=== PATIENT | female | born 1980 | race Caucasian/White ===

== ENCOUNTER 2023-06-06 08:57 | Outpatient (AMB) | payer BC, SELFPAY ==
--- NOTE | 2023-06-06 09:12 | A.OFFPC_ITS ---
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 Is last menstrual period known: Yes Last menstrual period: 05/28/23 Allergies Penicillins Adverse Reaction (Verified 06/06/23 09:31) Stomach Upset Medication List - Last Reconciled 06/06/23 by DASHA Burroughs No Known Home Meds Tobacco use date assessed: 06/06/23 Dental Screening Dental Screen Date: 06/06/23 Did you have a dental visit in the last 12 months?: Yes Did you have a dental problem in the last 6 months where you did not have access to dental care?: Yes Was dental information given to patient?: Patient has dentist HPI HPI Comments History of Present Illness Details Patient is a 42-year-old female here to establish care. Her most recent Pap smear was completed on 03/29/22 at [facility]. The result was negative for lesion or malignancy. She is up-to-date with her mammogram, the last screening was completed on 04/18/2023. She performs her mammograms at [facility]. Patient declines the influenza vaccine today. She is declining to get the COVID booster vaccine for this year. She has a past medical history significant for anxiety, hypertension, plantar fasciitis. She states that her anxiety is under control. Her blood pressure reading in office today was 144/82, patient would like to take blood pressure readings at home and report her results back in 2 weeks. She also reports that her plantar fasciitis has improved recently with new footwear. She occasionally uses Tylenol or Motrin with good effect. She does not want to pursue physical therapy at this time. She has a chief complaint of occasional henry red blood after a bowel movement. She states that she notices the blood most on the toilet paper. She notices this about once per week. Denies dizziness, chest pain, lethargy, shortness of breath, nausea, vomiting, diarrhea. She often has issues with constipation and has to strain while having a bowel movement. A celebrity chef entrepreneur media personality was present for the physical exam which noted small external hemorrhoid. [facility] Medical History (Updated 06/06/23 @ 15:25 by DASHA Burroughs) Plantar fasciitis Family History Sister Substance use disorder Mental health disorder Skin cancer Maternal Grandfather Substance use disorder Maternal Grandmother Substance use disorder Mother Mental health disorder Pancreatic cancer Coronary arteriosclerosis Social History Housing: House Patient Tobacco Use Status: Former Tobacco user e-Cigarette/Vaping Use: Currently Using Substance Use Type: Painkillers service: No Current occupational status: employed Cognitive needs: No Hearing needs: No Vision needs: Yes Female Reproductive History Menstrual Date of last menstrual period: 05/28/23 Date of Mammogram: 04/23/23 Questionnaire PHQ-9 Over the last 2 weeks, how often have you been bothered by any of the following problems? 1. Little interest or pleasure in doing things: not at all 2. Feeling down, depressed, or hopeless: not at all 3. Trouble falling or staying asleep, or sleeping too much: not at all 4. Feeling tired or having little energy: not at all 5. Poor appetite or overeating: not at all 6. Feeling bad about yourself - or that you are a failure or have let yourself or your family down: not at all 7. Trouble concentrating on things, such as reading the newspaper or watching television: not at all 8. Moving or speaking so slowly that other people could have noticed. Or the opposite - being so fidgety or restless that you have been moving around a lot more than usual: not at all 9. Thoughts that you would be better off or of hurting yourself in some way: not at all Total score: 0 Depression Screening Interpretation: Negative Depression Screening Done: Yes 87318 - PHQ-9 Billing: Yes Source: Developed by Drs. Buddy Moore, Lacey Chu, Aman Vang and colleagues, with an educational angeli from [employer]. Thrive Questionnaire Date Thrive assessed: 06/06/23 I am a: Patient What is your living situation today?: I have a steady place to live Within the past 12 months, did the food you bought not last and you didn't have the money to get more?: Never true Within the past 12 months, did you worry whether your food would run out before you got money to buy more?: Never true Do you have trouble paying for medicines?: No Do you have trouble getting transportation to medical appointments?: No Do you have trouble paying your heating and electricity bill?: No Do you have trouble taking care of your child, family member or friend?: No Do you have trouble with day-to-day activities such as bathing, preparing meals, shopping, managing finances, etc.?: No Are you currently unemployed and looking for a job?: No Are you interested in more education?: No THRIVE Score: 0 AUDIT C Alcohol Use Questionnaire (AUDIT-C) 1. How often do you have a drink containing alcohol?: 4 or more times a week 2. How many drinks containing alcohol do you have on a typical day when you are drinking?: 3 or 4 3. How often do you have six or more drinks on one occasion?: Monthly Total Score: 7 ALICIA-7 AMB Questionnaire ALICIA-7 Date ALICIA - 7 assessed: 06/06/23 Feeling nervous, anxious, or on edge: 0 = Not at all Not being able to stop or control worryin = Not at all Worrying too much about different things: 0 = Not at all Trouble relaxin = Not at all Being so restless that it is hard to sit still: 0 = Not at all Becoming easily annoyed or irritable: 0 = Not at all Feeling afraid as if something awful might happen: 0 = Not at all Total ALICIA-7 score (0-4 normal; 5-9 mild; 10-14 moderate; 15-21 severe): 0 Source: Developed by Drs. Buddy Moore, Lacey Chu, Aman Vang and colleagues, with an educational angeli from [employer]. ALICIA-7 Assessment Billing ALICIA-7 Assessment Tool: ALICIA-7 Assessment 70934 Review of Systems Const Details: Constitutional : No Weight loss, No Fever, No Chills, No Fatigue, No Malaise Eyes: No Eye Pain, No Swelling, No Redness, No vision change Cardiovascular : No Chest Pain, No SOB, No Dyspnea on Exertion, No Orthopnea, No Edema, No Palpitations Respiratory : No Cough, No Sputum, No Wheezing Gastrointestinal : No Nausea, No Vomiting, No Diarrhea, No Constipation, No abdominal Pain, No Hematochezia, No Melena Musculoskeletal : No joint pain, No Myalgias, No Joint Swelling Skin : Admits pink dry patch on shoulder. Neuro : No Weakness, No Numbness, No Dizziness, No Headache Psych : No Anxiety/Panic, No Depression Heme/Lymph: No Bruising, No Bleeding,No Lymphadenopathy Endocrine : No Polyuria, No Polydipsia All other systems reviewed and are negative Physical exam (Primary Care) Vital Signs: Last Vital Signs Pulse 83 06/06/23 09:13 BP 144/82 H 06/06/23 09:13 Pulse Ox 99 06/06/23 09:13 Oxygen Delivery Method Room Air 06/06/23 09:13 Care Plan Goal for BP management: Patient will take blood pressure measurements at home and call the office with results. Next steps: Patient has follow-up BMI result Body Mass Index 35.4 Tobacco/Smoking Status: Tobacco use Status Tobacco use date assessed 06/06/23 06/06/23 09:15 Patient Tobacco Use Status Former Tobacco user 06/06/23 09:39 e-Cigarette/Vaping Use Currently Using 06/06/23 09:39 PHQ-9: PHQ-9 Score PHQ-9: Total score 0 06/06/23 09:43 Depression Screening Interpretation: Negative Thrive Assessment: Date of Thrive Assessment Date Thrive assessed 06/06/23 06/06/23 09:19 Const Other: Appearance: Alert.? Oriented X3.? No acute distress.? Eyes: Pupils equal, round and reactive to light.? Neck: Normal inspection.? Neck supple.?Full ROM. CVS: Normal heart rate and rhythm.? Pulses normal.? Respiratory: No respiratory distress.? Breath sounds normal.? GI: (With Patternmaker Apprentice Metal Present): patient has small external hemorrhoid. Skin: Skin warm and dry.? Normal skin color.? Normal skin turgor.? Extremities: No lower extremity edema.? Tenderness to palpation inferior to heel, where arch begins. Over insertion site of plantar fascia. Neuro: Oriented X 3.? No motor deficit.? No sensory deficit. CN 2-12 intact Assessment and Plan Assessment & Plan (1) Hypertension: Comment: Patient will take blood pressure measurements at home and return the results the office in 2 weeks. Patient states that if blood pressure remains elevated she will be agreeable to going on blood pressure medication. She has been educated on signs of worsening symptoms when to report back to the office or when to present to the ED. Code(s): I10 - Essential (primary) hypertension Qualifiers: Hypertension type: primary hypertension Qualified Code(s): I10 - Essential (primary) hypertension (2) Dry skin: Comment: Patient has small pink patch of dry skin on her shoulder. Patient has not used any cream on the area. Patient has been advised to use hydrocortisone OTC cream. She has been instructed to call the office she does not see improvement in 2 weeks. Code(s): L85.3 - Xerosis cutis Plan: Take your medications as prescribed. If you were prescribed antibiotics today, it is important that you take your medication to their entirety, do not skip any doses, do not finish them early. Follow-up with your primary care provider this week. Return to the emergency department with new or worsening symptoms. Such as fevers, chills, chest pain, shortness of breath, nausea, vomiting, dizziness, headache, vision changes, lethargy In case of emergency call 911 (3) Plantar fasciitis: Comment: Patient will try capsaicin cream. She has also been notified that she can use a splint on her foot over night while she sleeps that will keep the foot stretched. This will help eliminate a.m. pain, which is when she has the most discomfort. Patient has declined Podiatry at this time. Will also obtain x-ray of the area. Code(s): M72.2 - Plantar fascial fibromatosis Plan Patient to follow-up 4 months. Orders: Orders Complete Blood Count Auto Diff Today Z13.0 - Encounter for screening for diseases of the blood and blood-forming organs and certain disorders involving the immune mechanism Lipid Panel Today Z13.220 - Encounter for screening for lipoid disorders Vitamin B12 Today Z13.21 - Encounter for screening for nutritional disorder UA CC w/rflx Micro + Cult Today E86.0 - Dehydration Comprehensive Met. Panel Today I10 - Essential (primary) hypertension Vitamin D 25-OH (D2 and D3) Today Z13.21 - Encounter for screening for nutritional disorder Vitamin B6 Today Z13.21 - Encounter for screening for nutritional disorder TSH reflex Free T4 Today Z13.29 - Encounter for screening for other suspected endocrine disorder Medications: New capsaicin 0.025% (Capsicum) do not leave patch on for more than 8 hrs 1 patch topical BID PRN 10 ea 0RF pain Review Flu Vaccine not done: patient reason Coding Level of Care Code New Pt Level 4 (78860) Diagnoses Primary hypertension I10 Hypertension type: primary hypertension Dry skin L85.3 Plantar fasciitis M72.2 Additional Codes ALICIA-7 Assessment Billing - ALICIA-7 Assessment Tool: ALICIA-7 Assessment [id number] ([id number]) Time Spent (min) 45
[2023-06-06 09:13] VITALS: BP 144/82; PULSE 83; O2SAT 99; BMI 35.4
== END 2023-06-06 11:50 | disposition home or self-care (01) ==
PROVIDERS: PCP Nurse Practitioner Primary Care; Visit Provider Nurse Practitioner Primary Care
DX: I10 Essential (primary) hypertension (principal); L85.3 Xerosis cutis; M72.2 Plantar fascial fibromatosis
CPT/HCPCS: 99204

== ENCOUNTER 2023-06-19 13:27 | Outpatient (AMB) | payer BC, SELFPAY ==
[2023-06-19 13:28] VITALS: BP 132/82; PULSE 94; O2SAT 98; BMI 35.4
--- NOTE | 2023-06-19 13:28 | MHC.PC.OV ---
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: No Accompanied by: Self / Same As Patient Allergies Penicillins Adverse Reaction (Verified 06/19/23 13:42) Stomach Upset Medication List - Last Reconciled 06/19/23 by DASHA Burroughs lisinopril 5 mg PO DAILY Tobacco use date assessed: 06/19/23 Dental Screening Dental Screen Date: 06/19/23 Did you have a dental visit in the last 12 months?: Yes Did you have a dental problem in the last 6 months where you did not have access to dental care?: No Was dental information given to patient?: Patient has dentist HPI HPI Comments History of Present Illness Details Patient is 42-year-old female here for blood pressure recheck. At last appointment 2 weeks ago patient's blood pressure was elevated in office 144/82. Patient was asked to keep blood pressure log at home and return in 2 weeks with values. Patient's blood pressure log which demonstrates at home values consistent with blood pressure measurement in office. Denies dizziness, headache, nausea, vomiting, diarrhea, chest pain, shortness a breath, numbness. Will start her on 5 mg lisinopril. Patient is getting labs drawn today. Patient has been instructed to keep blood pressure log at home. Report back to the office her results. Patient has annual physical exam in 5 months [facility] Medical History Plantar fasciitis Family History Sister Substance use disorder Mental health disorder Skin cancer Maternal Grandfather Substance use disorder Maternal Grandmother Substance use disorder Mother Mental health disorder Pancreatic cancer Coronary arteriosclerosis Social History Housing: House Patient Tobacco Use Status: Former Tobacco user e-Cigarette/Vaping Use: Currently Using Substance Use Type: Painkillers service: No Current occupational status: employed Cognitive needs: No Hearing needs: No Vision needs: Yes Questionnaire Thrive Questionnaire Date Thrive assessed: 06/06/23 ALICIA-7 AMB Questionnaire ALICIA-7 Date ALICIA - 7 assessed: 06/06/23 Source: Developed by Drs. uBddy Moore, Lacey Chu, Aman Vang and colleagues, with an educational angeli from [employer]. Review of Systems Const Details: Constitutional : No Weight loss, No Fever, No Chills, No Fatigue, No Malaise ENT/Mouth : No sore throat, No Rhinorrhea Eyes: No Eye Pain, No Swelling, No Redness Cardiovascular : No Chest Pain, No SOB, No Dyspnea on Exertion, No Orthopnea, No Edema, No Palpitations Respiratory : No Cough, No Sputum, No Wheezing Gastrointestinal : No Nausea, No Vomiting, No Diarrhea, No Constipation, No abdominal Pain, No Hematochezia, No Melena Genitourinary : No Dysuria, No Urinary Frequency, No Hematuria, Musculoskeletal : No joint pain, No Myalgias, No Joint Swelling Skin : No Skin Lesions, No rash Neuro : No Weakness, No Numbness, No Dizziness, No Headache Psych : No Anxiety/Panic, No Depression Heme/Lymph: No Bruising, No Bleeding,No Lymphadenopathy Endocrine : No Polyuria, No Polydipsia All other systems reviewed and are negative Physical exam (Primary Care) Vital Signs: Last Vital Signs Pulse 94 06/19/23 13:28 BP 132/82 06/19/23 13:28 Pulse Ox 98 06/19/23 13:28 Oxygen Delivery Method Room Air 06/19/23 13:28 BMI result Body Mass Index 35.4 Tobacco/Smoking Status: Tobacco use Status Tobacco use date assessed 06/19/23 06/19/23 13:29 Patient Tobacco Use Status Former Tobacco user 06/19/23 13:29 e-Cigarette/Vaping Use Currently Using 06/19/23 13:29 Thrive Assessment: Date of Thrive Assessment Date Thrive assessed 06/06/23 06/19/23 13:29 HENMT Head: Yes normal to inspection and Yes normocephalic Eyes Pupils: Equal, round and reactive pupils present EOM: EOMs intact bilaterally Direct Ophthalmoscopy: normal light reflex and no photophobia Neck Neck: Yes normal visual inspection, Yes full ROM and Yes no lymphadenopathy Resp Auscultation: clear to auscultation bilaterally Cardio Rate: regular rate Rhythm: regular rhythm Heart sounds: S1 normal heart sound present and S2 normal heart sound present Peripheral pulses: Peripheral pulses 2+ throughout Neuro Cranial nerves: Yes Equal, round and reactive pupils present Assessment and Plan Assessment & Plan (1) Hypertension: Comment: Started on 5 mg Lisinopril. Patient will continue to take blood pressure measurements at home. She has been educated on signs of worsening symptoms and when to report to the office or when to present to the ED. Code(s): I10 - Essential (primary) hypertension Qualifiers: Hypertension type: primary hypertension Qualified Code(s): I10 - Essential (primary) hypertension Plan: Take your medications as prescribed. If you were prescribed antibiotics today, it is important that you take your medication to their entirety, do not skip any doses, do not finish them early. Follow-up with your primary care provider this week. Return to the emergency department with new or worsening symptoms. Such as fevers, chills, chest pain, shortness of breath, nausea, vomiting, dizziness, headache, vision changes, lethargy In case of emergency call 911 Medications: New lisinopril 5 mg PO DAILY 90 tabs 0RF Patient Instructions: Follow-up in 2 weeks with blood pressure measurement results. Coding Level of Care Code Est Pt Level 3 (57722) Diagnoses Primary hypertension I10 Hypertension type: primary hypertension Time Spent (min) 25
== END 2023-06-19 15:11 | disposition home or self-care (01) ==
PROVIDERS: PCP Nurse Practitioner Primary Care; Visit Provider Nurse Practitioner Primary Care
DX: I10 Essential (primary) hypertension (principal)
CPT/HCPCS: 99213

== ENCOUNTER 2023-06-19 13:49 | Outpatient (REF) | payer BC, SELFPAY ==
[2023-06-19 15:59] LABS: MANUAL DIFF FLAG NO
[2023-06-19 16:03] LABS: Appearance Urine Clear; Color Urine Yellow; Glucose Urine UA Negative (Negative); Leukocyte Esterase Urine Negative (Negative); Nitrite Urine Negative (Negative); PH 6.5 (5.0-9.0); Specific Gravity - Urine 1.015 (1.005-1.025); Urine Blood Negative (Negative); Urine Ketones Negative (Negative); Urine Protein Negative (Neg-Trace)
[2023-06-19 16:04] LABS: Basophils Percent Auto 0.4 % (0-2); Eosinophils Absolute Auto 0.2 X10*3/uL (0.0-0.4); Eosinophils Percent Auto 2.7 % (0-4); Hemoglobin 13.2 g/dl (12.0-16.0); Imm Gran Abs Auto 0.03 X10*3/uL (0.00-0.03); Imm Gran Pct Auto 0.3 % (0.0-0.4); Lymphocytes Absolute Auto 2.6 X10*3/uL (1.2-4.9); Lymphocytes Percent Auto 29.6 % (20-40); Mean Corpuscular HGB Conc 34.7 g/dl (31.0-35.0); Mean Corpuscular Hemoglobin 29.9 pg (27.0-33.0); Mean Platelet Volume 10.1 fL (9.4-12.3); Monocytes Absolute Auto 0.5 X10*3/uL (0.1-1.2); Monocytes Percent Auto 5.1 % (2-11); Neutrophils Absolute Auto 5.5 x10*3/uL (2.0-8.3); Neutrophils Percent Auto 61.9 % (45-73); Platelet Count 248 X10*3/uL (160-400); Red Blood Count 4.42 X10*6/uL (4.20-5.50); Red Cell Distribution Width 12.2 % (11.0-16.0); White Blood Count 8.9 X10*3/uL (4.8-10.8)
[2023-06-19 16:26] LABS: Alanine Aminotransferase 24 U/L (0-31); Albumin Level 4.2 g/dL (3.5-5.0); Alkaline Phosphatase 70 U/L (39-117); Anion Gap 12 (12-20); Aspartate Amino Transferase 21 U/L (5-31); Bilirubin Total 0.4 mg/dL (0.0-1.0); Blood Urea Nitrogen 12 mg/dL (9-16); Calcium 9.2 mg/dL (8.4-10.2); Carbon Dioxide 24 mmol/L (22-29); Chloride 106 mmol/L (96-108); Estimated Glomerular Filt Rate > 60; Glucose Random 96 mg/dL (60-115); Potassium 3.9 mmol/L (3.3-5.1); Sodium 138 mmol/L (135-145); Total Protein 7.1 g/dL (6.5-8.0)
[2023-06-19 16:43] LABS: TSH reflex Free T4 1.78 uIU/mL (0.32-4.0)
[2023-06-19 16:45] LABS: Vitamin B12 479 pg/mL (200-900)
[2023-06-23 14:42] LABS: Vitamin D 25-OH, D2 <4 ng/mL; Vitamin D 25-OH, D3 8 ng/mL; Vitamin D 25-OH, Total 8 ng/mL (30-100)
[2023-06-26 06:28] LABS: Vitamin B6 5.3 ng/mL (2.1-21.7)
== END 2023-06-19 13:50 | disposition home or self-care (01) ==
LOC: HO.HMGCLDS 13:49
PROVIDERS: PCP Nurse Practitioner Primary Care; Visit Provider Nurse Practitioner Primary Care
DX: Z13.0 Encounter for screening for diseases of the blood and blood-forming organs and certain disorders involving the immune mechanism (principal); Z13.21 Encounter for screening for nutritional disorder; Z13.29 Encounter for screening for other suspected endocrine disorder; I10 Essential (primary) hypertension; E86.0 Dehydration
CPT/HCPCS: 36415; 80053; 81003; 82306; 82607; 84207; 84443; 85025

== ENCOUNTER 2023-09-16 07:53 | Outpatient (AMB) | payer BC, SELFPAY ==
--- NOTE | 2023-09-16 07:58 | A.OFFPC_ITS ---
Vital Signs 09/16/23 07:59 Height 5 ft 4 in Weight 202 lb BMI 34.7 BP 134/86 Blood Pressure Location Rt brachial Position Sitting Pulse 78 Pulse Source Pulse Oximeter Pulse Oximetry (%) 100 Oxygen Delivery Method Room Air 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: Annual PE/FMLA forms Intake Note: Pt is here today for PE. Allergies Penicillins Adverse Reaction (Verified 09/16/23 08:15) Stomach Upset Medication List - Last Reconciled 09/16/23 by DASHA Burroughs lisinopril 5 mg PO DAILY Tobacco use date assessed: 09/16/23 Dental Screening Dental Screen Date: 06/19/23 HPI HPI Comments History of Present Illness Details Patient is a 43-year-old female in for physical exam. Patient is up-to-date with OBGYN in mammogram. Patient will send us records from certified home health aide. Mammogram completed 5 months prior to this visit Patient is unsure of TD status. Patient has been advised to get status from recent medical provider. Hypertension-controlled. Currently taking 5 mg lisinopril Plantar fasciitis-improved with upgraded footwear. PFSH Medical History Plantar fasciitis Family History Sister Substance use disorder Mental health disorder Skin cancer Maternal Grandfather Substance use disorder Maternal Grandmother Substance use disorder Mother Mental health disorder Pancreatic cancer Coronary arteriosclerosis Social History (Updated 09/16/23 @ 08:36 by DASHA Burroughs) Housing: House Patient Tobacco Use Status: Former Tobacco user e-Cigarette/Vaping Use: Currently Using Substance Use Type: Marijuana and Painkillers service: No Current occupational status: employed Cognitive needs: No Hearing needs: No Vision needs: Yes Questionnaire PHQ-9 Over the last 2 weeks, how often have you been bothered by any of the following problems? 1. Little interest or pleasure in doing things: several days 2. Feeling down, depressed, or hopeless: several days 3. Trouble falling or staying asleep, or sleeping too much: several days 4. Feeling tired or having little energy: several days 5. Poor appetite or overeating: several days 6. Feeling bad about yourself - or that you are a failure or have let yourself or your family down: several days 7. Trouble concentrating on things, such as reading the newspaper or watching television: several days 8. Moving or speaking so slowly that other people could have noticed. Or the opposite - being so fidgety or restless that you have been moving around a lot more than usual: not at all 9. Thoughts that you would be better off or of hurting yourself in some way: not at all Total score: 7 Depression Screening Interpretation: Negative Depression Screening Done: Yes 45693 - PHQ-9 Billing: Yes Source: Developed by Drs. Buddy Moore, Lacey Chu, Aman Vang and colleagues, with an educational angeli from [employer]. Thrive Questionnaire Date Thrive assessed: 06/06/23 AUDIT C Alcohol Use Questionnaire (AUDIT-C) 1. How often do you have a drink containing alcohol?: 4 or more times a week 2. How many drinks containing alcohol do you have on a typical day when you are drinking?: 3 or 4 3. How often do you have six or more drinks on one occasion?: Monthly Total Score: 7 ALICIA-7 AMB Questionnaire ALICIA-7 Date ALICIA - 7 assessed: 06/06/23 Source: Developed by Drs. Buddy Moore, Lacey Chu, Aman asencio nd colleagues, with an educational angeli from [employer]. Review of Systems Const All systems reviewed & are unremarkable except as noted in HPI and below Physical exam (Primary Care) Vital Signs: Last Vital Signs Pulse 78 09/16/23 07:59 BP 134/86 09/16/23 07:59 Pulse Ox 100 09/16/23 07:59 Oxygen Delivery Method Room Air 09/16/23 07:59 Care Plan Goal for BP management: Patient will take blood pressure measurements and record them home Next steps: Will improve diet limit salt intake. BMI result Body Mass Index 34.7 Tobacco/Smoking Status: Tobacco use Status Tobacco use date assessed 09/16/23 09/16/23 08:03 Patient Tobacco Use Status Former Tobacco user 09/16/23 07:58 e-Cigarette/Vaping Use Currently Using 09/16/23 07:58 PHQ-9: PHQ-9 Score PHQ-9: Total score 7 09/16/23 08:41 Depression Screening Interpretation: Negative Thrive Assessment: Date of Thrive Assessment Date Thrive assessed 06/06/23 09/16/23 07:58 Advance Care Planning discussion: Exists, not on file (Patient bring in to scan) Forms completed: Health Care Proxy Time spent: 1-15 minutes, not on file Const Other: Appearance: Alert.? Oriented X3.? No acute distress.? Head: Normocephalic, atraumatic, Eyes: Pupils equal, round and reactive to light.? ENT: Pharynx normal.?TM intact and pearly esteban. Neck: Normal inspection.? Neck supple.?Full ROM. CVS: Normal heart rate and rhythm.? Pulses normal.? Respiratory: No respiratory distress.? Breath sounds normal.? Abdomen: Soft and nontender.? Skin: Skin warm and dry.? Normal skin color.? Normal skin turgor.? Extremities: No lower extremity edema. 5/5 strength to bilateral upper and lower extremities Back: No midline tenderness, no C-spine tenderness, full range of motion, no CVA tenderness bilaterally Neuro: Oriented X 3.? No motor deficit.? No sensory deficit. CN 2-12 intact Results Reviewed Results Reviewed: WBC 8.9 4.8-10.8 X10*3/uL RBC 4.42 4.20-5.50 X10*6/uL HGB 13.2 12.0-16.0 g/dl HCT 38.0 37.0-47.0 % MCV 86.0 80.0-98.0 fL MCH 29.9 27.0-33.0 pg MCHC 34.7 31.0-35.0 g/dl RDW 12.2 11.0-16.0 % PLT 248 160-400 X10*3/uL MPV 10.1 9.4-12.3 fL Neut Pct Auto 61.9 45-73 % ImGran Pct Auto 0.3 0.0-0.4 % Lymp Pct Auto 29.6 20-40 % [place] Pct Auto 5.1 2-11 % Eos Pct Auto 2.7 0-4 % Baso Pct Auto 0.4 0-2 % NRBC Pct Auto 0.0 0.0-0.2 /100WBC ANC Neut Abs # 5.5 2.0-8.3 x10*3/uL ImGran Abs Auto 0.03 0.00-0.03 X10*3/uL Lymph Abs Auto 2.6 1.2-4.9 X10*3/uL [place] Abs Auto 0.5 0.1-1.2 X10*3/uL Eos Abs Auto 0.2 0.0-0.4 X10*3/uL Baso Abs Auto 0.0 0.0-0.2 X10*3/uL NRBC Abs Auto 0.000 0.0-0.012 X10*3/uL Assessment and Plan Assessment & Plan (1) Encounter for physical examination: Comment: Will draw BMP, CBC. Code(s): Z00.00 - Encounter for general adult medical examination without abnormal findings (2) Plantar fasciitis: Comment: Patient utilizing supportive footwear good effect. Code(s): M72.2 - Plantar fascial fibromatosis (3) Hypertension: Comment: Started on 5 mg Lisinopril. Patient will continue to take blood pressure measurements at home. Patient has been educated to limit salt intake. Code(s): I10 - Essential (primary) hypertension Qualifiers: Hypertension type: primary hypertension Qualified Code(s): I10 - Essential (primary) hypertension Plan Follow up in 6 months. Orders: Orders Basic Metabolic Panel 09/16/23 Z91.89 - Other specified personal risk factors, not elsewhere classified Complete Blood Count Auto Diff 09/16/23 Z13.0 - Encounter for screening for diseases of the blood and blood-forming organs and certain disorders involving the immune mechanism Lipase 09/16/23 Z80.0 - Family history of malignant neoplasm of digestive organs Coding Level of Care Code Est Pt Prev Care 40-64y(23203) Diagnoses Encounter for physical examination Z00.00 Plantar fasciitis M72.2 Primary hypertension I10 Hypertension type: primary hypertension Additional Codes Vital Signs *Quality* - Advance Care Planning discussion: Exists, not on file ([id number]) Vital Signs *Quality* - Time spent: 1-15 minutes, not on file ([id number])
[2023-09-16 07:59] VITALS: BP 134/86; PULSE 78; O2SAT 100; BMI 34.7
== END 2023-09-16 09:46 | disposition home or self-care (01) ==
PROVIDERS: Visit Provider Nurse Practitioner Primary Care
DX: Z00.00 Encounter for general adult medical examination without abnormal findings (principal); M72.2 Plantar fascial fibromatosis; I10 Essential (primary) hypertension
CPT/HCPCS: 1123F; 1124F; 99396

== ENCOUNTER 2023-09-16 08:35 | Outpatient (REF) | payer BC, SELFPAY ==
[2023-09-16 10:32] LABS: MANUAL DIFF FLAG NO
[2023-09-16 10:39] LABS: Basophils Percent Auto 0.5 % (0-2); Eosinophils Absolute Auto 0.1 X10*3/uL (0.0-0.4); Eosinophils Percent Auto 1.2 % (0-4); Hemoglobin 13.6 g/dl (12.0-16.0); Imm Gran Abs Auto 0.03 X10*3/uL (0.00-0.03); Imm Gran Pct Auto 0.4 % (0.0-0.4); Lymphocytes Absolute Auto 2.3 X10*3/uL (1.2-4.9); Lymphocytes Percent Auto 28.2 % (20-40); Mean Corpuscular Hemoglobin 30.2 pg (27.0-33.0); Mean Corpuscular Volume 88.9 fL (80.0-98.0); Monocytes Absolute Auto 0.5 X10*3/uL (0.1-1.2); Monocytes Percent Auto 5.7 % (2-11); Neutrophils Absolute Auto 5.3 x10*3/uL (2.0-8.3); Platelet Count 257 X10*3/uL (160-400); Red Cell Distribution Width 12.9 % (11.0-16.0); White Blood Count 8.2 X10*3/uL (4.8-10.8)
[2023-09-16 11:12] LABS: Anion Gap 16 (12-20); Blood Urea Nitrogen 12 mg/dL (9-16); Calcium 9.8 mg/dL (8.4-10.2); Carbon Dioxide 23 mmol/L (22-29); Chloride 106 mmol/L (96-108); Estimated Glomerular Filt Rate > 60; Glucose Random 109 mg/dL (60-115); Lipase 24 U/L (8-78); Potassium 4.1 mmol/L (3.3-5.1); Sodium 141 mmol/L (135-145)
== END 2023-09-16 08:36 | disposition home or self-care (01) ==
LOC: HO.HMGCLDS 08:35
PROVIDERS: PCP Nurse Practitioner Primary Care; Visit Provider Nurse Practitioner Primary Care
DX: Z91.89 Other specified personal risk factors, not elsewhere classified (principal); Z80.0 Family history of malignant neoplasm of digestive organs; Z13.0 Encounter for screening for diseases of the blood and blood-forming organs and certain disorders involving the immune mechanism
CPT/HCPCS: 36415; 80048; 83690; 85025

== ENCOUNTER 2024-01-10 14:05 | Outpatient (AMB) | payer BC, SELFPAY ==
[2024-01-10 14:06] VITALS: BP 122/76; PULSE 101; O2SAT 97; BMI 34.7
--- NOTE | 2024-01-10 14:06 | MHC.PC.OV ---
Vital Signs 01/10/24 14:06 Height 5 ft 4 in Weight 202 lb BMI 34.7 BP 122/76 Blood Pressure Location Rt brachial Position Sitting Pulse 101 H Pulse Source Pulse Oximeter Pulse Oximetry (%) 97 Oxygen Delivery Method Room Air 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: Transfer of care from [facility] Allergies Penicillins Adverse Reaction (Verified 01/10/24 14:07) Stomach Upset Medication List - Last Reconciled 01/10/24 by Taylor Rey MD lisinopril 5 mg PO DAILY Tobacco use date assessed: 01/10/24 Dental Screening Dental Screen Date: 06/19/23 HPI Transfer of care from [facility] HPI Details Patient is a 43-year-old female came in today for establish care visit Patient have hypertension and is currently taking lisinopril 5 mg blood pressure is well-controlled No side effects Patient complaining of pain right foot for that I have ordered x-ray for the management after the report BMI is elevated at 34.7 need to lose weight Patient offer no other complaints She will return in May for physical exam appointment Labs are needed before visit order placed. [facility] Medical History Plantar fasciitis Family History Sister Substance use disorder Mental health disorder Skin cancer Maternal Grandfather Substance use disorder Maternal Grandmother Substance use disorder Mother Mental health disorder Pancreatic cancer Coronary arteriosclerosis Social History Housing: House Patient Tobacco Use Status: Former Tobacco user e-Cigarette/Vaping Use: Currently Using Substance Use Type: Marijuana and Painkillers service: No Current occupational status: employed Cognitive needs: No Hearing needs: No Vision needs: Yes Questionnaire PHQ-9 Over the last 2 weeks, how often have you been bothered by any of the following problems? 1. Little interest or pleasure in doing things: several days 2. Feeling down, depressed, or hopeless: several days 3. Trouble falling or staying asleep, or sleeping too much: several days 4. Feeling tired or having little energy: several days 5. Poor appetite or overeating: not at all 6. Feeling bad about yourself - or that you are a failure or have let yourself or your family down: several days 7. Trouble concentrating on things, such as reading the newspaper or watching television: not at all 8. Moving or speaking so slowly that other people could have noticed. Or the opposite - being so fidgety or restless that you have been moving around a lot more than usual: not at all 9. Thoughts that you would be better off or of hurting yourself in some way: not at all Total score: 5 Depression Screening Interpretation: Negative Depression Screening Done: Yes 07021 - PHQ-9 Billing: Yes Source: Developed by Drs. Buddy Moore, Lacey Chu, Aman Vang and colleagues, with an educational angeli from [employer]. Thrive Questionnaire Date Thrive assessed: 01/10/24 I am a: Patient What is your living situation today?: I have a steady place to live Within the past 12 months, did the food you bought not last and you didn't have the money to get more?: I choose not to answer this question Within the past 12 months, did you worry whether your food would run out before you got money to buy more?: I choose not to answer this question Do you have trouble paying for medicines?: No Do you have trouble getting transportation to medical appointments?: No Do you have trouble paying your heating and electricity bill?: No Do you have trouble taking care of your child, family member or friend?: No Do you have trouble with day-to-day activities such as bathing, preparing meals, shopping, managing finances, etc.?: I choose not to answer this question Are you currently unemployed and looking for a job?: No Are you interested in more education?: I choose not to answer this question Please select the resources that you would like help with: None Currently or been in a relationship where the following occur: I choose not to answer THRIVE Score: 0 AUDIT C Alcohol Use Questionnaire (AUDIT-C) 1. How often do you have a drink containing alcohol?: 2-3 times a week 2. How many drinks containing alcohol do you have on a typical day when you are drinking?: 3 or 4 3. How often do you have six or more drinks on one occasion?: Weekly Total Score: 7 ALICIA-7 AMB Questionnaire ALICIA-7 Date ALICIA - 7 assessed: 01/10/24 Feeling nervous, anxious, or on edge: 1 = Several days Not being able to stop or control worryin = Several days Worrying too much about different things: 1 = Several days Trouble relaxin = Several days Being so restless that it is hard to sit still: 0 = Not at all Becoming easily annoyed or irritable: 1 = Several days Feeling afraid as if something awful might happen: 0 = Not at all Total ALICIA-7 score (0-4 normal; 5-9 mild; 10-14 moderate; 15-21 severe): 5 Source: Developed by Drs. Buddy Moore, Lacey Chu, Aman Vang and colleagues, with an educational angeli from [employer]. Review of Systems Const Denies chills and Denies fever(s) ENT Denies epistaxis and Denies nasal discharge Card Denies chest pain Resp Denies chest congestion, Denies cough and Denies hemoptysis GI Denies diarrhea and Denies nausea Skin/Breast Denies rash Neuro Reports no additional complaints Psych Reports no additional complaints Endo Reports no additional complaints Physical exam (Primary Care) Vital Signs: Last Vital Signs Pulse 101 H 01/10/24 14:06 BP 122/76 01/10/24 14:06 Pulse Ox 97 01/10/24 14:06 Oxygen Delivery Method Room Air 01/10/24 14:06 BMI result Body Mass Index 34.7 Tobacco/Smoking Status: Tobacco use Status Tobacco use date assessed 01/10/24 01/10/24 14:10 Patient Tobacco Use Status Former Tobacco user 01/10/24 14:10 e-Cigarette/Vaping Use Currently Using 01/10/24 14:10 PHQ-9: PHQ-9 Score PHQ-9: Total score 5 01/10/24 14:20 Depression Screening Interpretation: Negative Thrive Assessment: Date of Thrive Assessment Date Thrive assessed 01/10/24 01/10/24 14:10 Currently or been in a relationship where the following occur: I choose not to answer Const General: cooperative, comfortable and no acute distress Orientation/consciousness: patient oriented x3 HENMT Head: Yes normocephalic Eyes General: appearance normal, both eyes and all related structures Neck Neck: Yes supple Resp Effort & Inspection: normal respiratory effort, no cough and no stridor Cardio Rhythm: regular rhythm Heart sounds: S1 normal heart sound present and S2 normal heart sound present Skin General skin exam: turgor normal Neuro General: patient oriented x3, tone normal and moves all extremities Extrem Right lower extremity: no edema Left lower extremity: no edema Assessment and Plan Assessment & Plan (1) Establishing care with new doctor, encounter for: Code(s): Z76.89 - Persons encountering health services in other specified circumstances (2) Hypertension: Comment: Started on 5 mg Lisinopril. Patient will continue to take blood pressure measurements at home. Patient has been educated to limit salt intake. Code(s): I10 - Essential (primary) hypertension Qualifiers: Hypertension type: primary hypertension Qualified Code(s): I10 - Essential (primary) hypertension (3) Foot pain, right: Code(s): M79.671 - Pain in right foot (4) Obesity due to excess calories: Code(s): E66.09 - Other obesity due to excess calories Qualifiers: Obesity classification: adult class 1 (BMI 30 - 34.9) Serious obesity comorbidity presence: with serious comorbidity Body mass index: BMI 34.0-34.9 Qualified Code(s): E66.09 - Other obesity due to excess calories; Z68.34 - Body mass index [BMI] 34.0-34.9, adult Plan Patient is a 43-year-old female came in today for establish care visit Patient have hypertension and is currently taking lisinopril 5 mg blood pressure is well-controlled No side effects Patient complaining of pain right foot for that I have ordered x-ray for the management after the report BMI is elevated at 34.7 need to lose weight Patient offer no other complaints She will return in May for physical exam appointment Labs are needed before visit order placed. Orders: Orders Vitamin D 25-OH (D2 and D3) Today E66.09 - Other obesity due to excess calories, I10 - Essential (primary) hypertension, M79.671 - Pain in right foot, Z76.89 - Persons encountering health services in other specified circumstances Complete Blood Count Auto Diff Today E66.09 - Other obesity due to excess calories, I10 - Essential (primary) hypertension, M79.671 - Pain in right foot, Z76.89 - Persons encountering health services in other specified circumstances Comprehensive [place]. Panel Fast Today E66.09 - Other obesity due to excess calories, I10 - Essential (primary) hypertension, M79.671 - Pain in right foot, Z76.89 - Persons encountering health services in other specified circumstances Lipid Panel Today E66.09 - Other obesity due to excess calories, I10 - Essential (primary) hypertension, M79.671 - Pain in right foot, Z76.89 - Persons encountering health services in other specified circumstances TSH reflex Free T4 Today E66.09 - Other obesity due to excess calories, I10 - Essential (primary) hypertension, M79.671 - Pain in right foot, Z76.89 - Persons encountering health services in other specified circumstances Coding Level of Care Code New Pt Level 3 (17631) Diagnoses Establishing care with new doctor, encounter for Z76.89 Primary hypertension I10 Hypertension type: primary hypertension Foot pain, right M79.671 Class 1 obesity due to excess calories with serious comorbidity and body mass index (BMI) of 34.0 to 34.9 in adult E66.09; Z68.34 Obesity classification: adult class 1 (BMI 30 - 34.9) Serious obesity comorbidity presence: with serious comorbidity Body mass index: BMI 34.0-34.9
== END 2024-01-10 14:24 | disposition home or self-care (01) ==
PROVIDERS: PCP Nurse Practitioner Primary Care; Visit Provider Internal Medicine
DX: Z76.89 Persons encountering health services in other specified circumstances (principal); I10 Essential (primary) hypertension; M79.671 Pain in right foot; E66.09 Other obesity due to excess calories; Z68.34 Body mass index [BMI] 34.0-34.9, adult
CPT/HCPCS: 99203

== ENCOUNTER 2024-01-10 14:30 | Outpatient (REF) | payer BC, SELFPAY ==
--- NOTE | ~2024-01-10 | XR_ITS ---
EXAMINATION: XR FOOT, RIGHT CLINICAL INFORMATION: Pain right foot. COMPARISON: None available. TECHNIQUE: AP, lateral, and oblique views of the right foot. FINDINGS: Small plantar calcaneal spur. Bone mineralization is normal. Joint spaces are preserved. XR/XR foot RT min 3V IMPRESSION: Small plantar calcaneal spur. Electronically signed by: Lindsey Emmanuel MD 01/29/2024 01:55 PM EDT
== END 2024-01-10 14:31 | disposition home or self-care (01) ==
LOC: HO.HMGCX 14:30
PROVIDERS: PCP Internal Medicine; Visit Provider Internal Medicine
DX: M79.671 Pain in right foot (principal)
CPT/HCPCS: 73630

== ENCOUNTER 2024-03-19 08:34 | Outpatient (AMB) | payer BC, SELFPAY ==
--- NOTE | 2024-03-19 09:03 | A.OFFPC_ITS ---
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 Work~ Allergies Penicillins Adverse Reaction (Verified 03/19/24 09:03) Stomach Upset Medication List - Last Reconciled 03/19/24 by Taylor Rey MD lisinopril 5 mg PO DAILY Tobacco use date assessed: 03/19/24 Dental Screening Dental Screen Date: 03/19/24 Did you have a dental visit in the last 12 months?: Yes Did you have a dental problem in the last 6 months where you did not have access to dental care?: No Was dental information given to patient?: Patient has dentist HPI FMLA Work~ HPI Details condition started May of this year right foot heal started to hurt she work in [employer] , [employer] and is on her feet all day on concrete floor 8 hours a day , 5 days a week patient is requesting 4 days a month leave if needed for foot pain 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 [place] i have given her the Phone number to call and book apt [facility] Medical History Plantar fasciitis Family History Sister Substance use disorder Mental health disorder Skin cancer Maternal Grandfather Substance use disorder Maternal Grandmother Substance use disorder Mother Mental health disorder Pancreatic cancer Coronary arteriosclerosis Social History Housing: House Patient Tobacco Use Status: Former Tobacco user e-Cigarette/Vaping Use: Currently Using Substance Use Type: Marijuana and Painkillers service: No Current occupational status: employed Cognitive needs: No Hearing needs: No Vision needs: Yes Questionnaire Thrive Questionnaire Date Thrive assessed: 01/10/24 AUDIT C Alcohol Use Questionnaire (AUDIT-C) 1. How often do you have a drink containing alcohol?: 2-3 times a week 2. How many drinks containing alcohol do you have on a typical day when you are drinking?: 3 or 4 3. How often do you have six or more drinks on one occasion?: Weekly Total Score: 7 Score Reviewed/Action Taken: Yes ALICIA-7 AMB Questionnaire ALICIA-7 Date ALICIA - 7 assessed: 01/10/24 Source: Developed by Drs. Buddy Moore, Lacey B.W. Aman Chu and colleagues, with an educational angeli from [employer]. Review of Systems Const All systems reviewed & are unremarkable except as noted in HPI and below Physical exam (Primary Care) Tobacco/Smoking Status: Tobacco use Status Tobacco use date assessed 03/19/24 03/19/24 09:04 Patient Tobacco Use Status Former Tobacco user 03/19/24 09:04 e-Cigarette/Vaping Use Currently Using 03/19/24 09:04 Thrive Assessment: Date of Thrive Assessment Date Thrive assessed 01/10/24 03/19/24 09:04 Telehealth Telehealth Telehealth Platform: [employer] Location of provider rendering services: practice address Location of patient: address on file Patient Identification confirmed using: Name, : Yes Telehealth method: voice only Patient verbally consented to treatment: Yes Patient verbally consented to billing insurance company: Yes Patient informed of any privacy concerns related to visit: Yes Minutes spent on Phone/Video with Pt.: 13 Coding Level of Care Code Tele Est Pt Level 3 (65940) Diagnoses Heel spur M77.30 Foot pain, right M79.671 Assessment & Plan Assessment & Plan (1) Heel spur: Code(s): M77.30 - Calcaneal spur, unspecified foot Category: Medical (2) Foot pain, right: Code(s): M79.671 - Pain in right foot Category: Medical Plan condition started May of this year right foot heal started to hurt X ray shows Heal spure she work in [employer] , [employer] [place] and is on her feet all day on concrete floor 8 hours a day , 5 days a week patient is requesting 4 days a month leave if needed for foot pain 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
== END 2024-03-19 12:07 | disposition home or self-care (01) ==
LOC: HO.HMCC 08:34
PROVIDERS: PCP Internal Medicine; Visit Provider Internal Medicine
DX: M77.31 Calcaneal spur, right foot (principal); M79.671 Pain in right foot

== ENCOUNTER 2024-04-24 12:20 | Outpatient (AMB) | payer BC, SELFPAY ==
[2024-04-24 12:22] VITALS: BP 128/86; PULSE 105; O2SAT 100; BMI 34.6
--- NOTE | 2024-04-24 12:22 | A.OFFPC_ITS ---
Vital Signs 3 04/24/24 12:22 Height 5 ft 4 in Weight 201 lb 8 oz BMI 34.6 BP 128/86 Blood Pressure Location Rt brachial Position Sitting Pulse 105 H Pulse Source Pulse Oximeter Pulse Oximetry (%) 100 Oxygen Delivery Method Room Air 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: Left ribs pain , trouble pain Allergies Penicillins Adverse Reaction (Verified 04/24/24 12:25) Stomach Upset Medication List - Last Reconciled 04/24/24 by Taylor Rey MD lisinopril 5 mg PO DAILY Tobacco use date assessed: 03/19/24 Dental Screening Dental Screen Date: 03/19/24 HPI Left ribs pain , trouble pain 2 HPI0 Details Chief Complaint The patient complains of pain in the left chest area, worsened by deep breaths or coughing. Assessment and Plan 43-year-old female with history of hyper tension presenting with left-sided chest pain following a coughing incident. The pain began approximately one week ago and coincided with a prior fall three weeks prior, although the patient reports no direct trauma to the chest at the time of the fall. The pain is described as severe and is exacerbated by coughing and deep breathing. Physical examination reveals tenderness and swelling in specific areas on the left chest, suggesting a possible rib fracture. An x-ray has been ordered to confirm the diagnosis. The patient has a known allergy to penicillin, and she prefers to avoid opioid-based pain management. 1. Hypertension Patient's blood pressure medication will be continued. It has been confirmed that the prescribed pain medication will not interact adversely with the antihypertensive treatment. Patient to monitor blood pressure to ensure stability and continue with routine care. 2. Other symptoms and signs involving th e musculoskeletal system R29.898 Patient presents with symptoms consistent with a rib fracture following a coughing episode. Differential diagnosis includes muscular strain versus fracture. A rib x-ray has been ordered to confirm the suspected rib fracture. Management involves pain control and encouragement of deep breathing exercises to prevent pulmonary complications. Prescribed non-opioid analgesics due to the patient's preference to avoid opioids. Diagnostic results - Rib X-ray: Ordered, pending results Problem List - Suspected Rib Fracture - Hypertension - Penicillin Allergy Medications - Antihypertensive medication: For manag ement of hypertension Health Maintenance - Reminded patient to complete fasting b lood test as per prior order Patient Instructions - Take prescribed pain medication with f ood as directed. - Perform deep breathing exercises throu ghout the day to maintain lung function. - Complete fasting blood work as schedul ed. - Avoid lying on the affected side to re duce pain during sleep. - Use Tylenol for pain management and av oid ibuprofen due to interaction with current medication. [facility] Medical History Plantar fasciitis Family History Sister Substance use disorder Mental health disorder Skin cancer Maternal Grandfather Substance use disorder Maternal Grandmother Substance use disorder Mother Mental health disorder Pancreatic cancer Coronary arteriosclerosis Social History Housing: House Patient Tobacco Use Status: Former Tobacco user e-Cigarette/Vaping Use: Currently Using Substance Use Type: Marijuana and Painkillers service: No Current occupational status: employed Cognitive needs: No Hearing needs: No Vision needs: Yes Questionnaire Thrive Questionnaire Date Thrive assessed: 01/10/24 I am a: Patient What is your living situation today?: I have a steady place to live Within the past 12 months, did the food you bought not last and you didn't have the money to get more?: I choose not to answer this question Within the past 12 months, did you worry whether your food would run out before you got money to buy more?: I choose not to answer this question Do you have trouble paying for medicines?: No Do you have trouble getting transportation to medical appointments?: No Do you have trouble paying your heating and electricity bill?: No Do you have trouble taking care of your child, family member or friend?: No Do you have trouble with day-to-day activities such as bathing, preparing meals, shopping, managing finances, etc.?: I choose not to answer this question Are you currently unemployed and looking for a job?: No Are you interested in more education?: I choose not to answer this question Please select the resources that you would like help with: None Currently or been in a relationship where the following occur: I choose not to answer THRIVE Score: 0 ALICIA-7 AMB Questionnaire ALICIA-7 Date ALICIA - 7 assessed: 01/10/24 Source: Developed by Drs. Buddy Moore, Lacey Aman Garcia and colleagues, with an educational angeli from [employer]. Review of Systems Const Denies chills and Denies fever(s) ENT Denies epistaxis and Denies nasal discharge Resp Denies chest congestion, Denies cough and Denies hemoptysis GI Denies diarrhea and Denies nausea Skin/Breast Denies rash Neuro Reports no additional complaints Psych Reports no additional complaints Endo Reports no additional complaints Physical exam (Primary Care) Vital Signs: Last Vital Signs Pulse 105 H 04/24/24 12:22 BP 128/86 04/24/24 12:22 Pulse Ox 100 04/24/24 12:22 Oxygen Delivery Method Room Air 04/24/24 12:22 BMI result Body Mass Index 34.6 Tobacco/Smoking Status: Tobacco use Status Tobacco use date assessed 03/19/24 04/24/24 12:26 Patient Tobacco Use Status Former Tobacco user 04/24/24 12:26 e-Cigarette/Vaping Use Currently Using 04/24/24 12:26 Thrive Assessment: Date of Thrive Assessment Date Thrive assessed 01/10/24 04/24/24 12:26 Currently or been in a relationship where the following occur: I choose not to answer Const General: cooperative Orientation/consciousness: patient oriented x3 HENMT Head: Yes normocephalic Eyes General: appearance normal, both eyes and all related structures Neck Neck: Yes supple Chest Chest/axillae images: 2 1. Point tenderness Resp Effort & Inspection: no cough and no stridor Cardio Rhythm: regular rhythm Heart sounds: S1 normal heart sound present and S2 normal heart sound present GI Other: No epigastric pain Skin General skin exam: turgor normal Neuro General: patient oriented x3, tone normal and moves all extremities Extrem Right lower extremity: no edema Left lower extremity: no edema Coding Level of Care Code Est Pt Level 3 (80226) Diagnoses Rib pain on left side R07.81 Primary hypertension I10 Hypertension type: primary hypertension Assessment & Plan Assessment & Plan (1) Rib pain on left side: Code(s): R07.81 - Pleurodynia Category: Medical (2) Hypertension: Comment: Started on 5 mg Lisinopril. Patient will continue to take blood pressure measurements at home. Patient has been educated to limit salt intake. Code(s): I10 - Essential (primary) hypertension Category: Medical Qualifiers: Hypertension type: primary hypertension Qualified Code(s): I10 - Essential (primary) hypertension Plan Chief Complaint The patient complains of pain in the left chest area, worsened by deep breaths or coughing. Assessment and Plan 43-year-old female with history of hypertension presenting with left-sided chest pain following a coughing incident. The pain began approximately one week ago and coincided with a prior fall three weeks prior, although the patient reports no direct trauma to the chest at the time of the fall. The pain is described as severe and is exacerbated by coughing and deep breathing. Physical examination reveals tenderness and swelling in specific areas on the left chest, suggesting a possible rib fracture. An x-ray has been ordered to confirm the diagnosis. The patient has a known allergy to penicillin, and she prefers to avoid opioid-based pain management. 1. Hypertension Patient's blood pressure medication will be continued. It has been confirmed that the prescribed pain medication will not interact adversely with the antihypertensive treatment. Patient to monitor blood pressure to ensure stability and continue with routine care. 2. Other symptoms and signs involving the musculoskeletal system R29.898 Patient presents with symptoms consistent with a rib fracture following a coughing episode. Differential diagnosis includes muscular strain versus fracture. A rib x-ray has been ordered to confirm the suspected rib fracture. Management involves pain control and encouragement of deep breathing exercises to prevent pulmonary complications. Prescribed non-opioid analgesics due to the patient's preference to avoid opioids. Diagnostic results - Rib X-ray: Ordered, pending results Problem List - Suspected Rib Fracture - Hypertension - Penicillin Allergy Medications - Antihypertensive medication: For management of hypertension Health Maintenance - Reminded patient to complete fasting blood test as per prior order Patient Instructions - Take prescribed pain medication with food as directed. - Perform deep breathing exercises throughout the day to maintain lung function. - Complete fasting blood work as scheduled. - Avoid lying on the affected side to reduce pain during sleep. - Use Tylenol for pain management and avoid ibuprofen due to interaction with current medication. Orders: Orders 2 XR ribs LT min 3V w CXR1V Today R07.81 - Pleurodynia Medications: New 2 diclofenac sodium take it with food 75 mg PO Q12H PRN 60 tabs 0RF pain
== END 2024-04-24 12:46 | disposition home or self-care (01) ==
PROVIDERS: PCP Internal Medicine; Visit Provider Internal Medicine
DX: R07.81 Pleurodynia (principal); I10 Essential (primary) hypertension

== ENCOUNTER 2024-06-09 08:30 | Outpatient (AMB) | payer BC, SELFPAY ==
[2024-06-09 08:34] VITALS: BP 126/84; PULSE 95; O2SAT 99; BMI 34.8
--- NOTE | 2024-06-09 08:34 | A.OFFPC_ITS ---
Vital Signs 06/09/24 08:34 Height 5 ft 4 in Weight 202 lb 8 oz BMI 34.8 BP 126/84 Blood Pressure Location Rt brachial Position Sitting Pulse 95 Pulse Source Pulse Oximeter Pulse Oximetry (%) 99 Oxygen Delivery Method Room Air 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: office visit Allergies Penicillins Adverse Reaction (Verified 06/09/24 08:36) Stomach Upset Medication List - Last Reconciled 06/09/24 by Taylor Rey MD diclofenac sodium 75 mg PO Q12H PRN lisinopril 5 mg PO DAILY Tobacco use date assessed: 06/09/24 Dental Screening Dental Screen Date: 06/09/24 Did you have a dental visit in the last 12 months?: Yes Did you have a dental problem in the last 6 months where you did not have access to dental care?: No Was dental information given to patient?: Patient has dentist HPI office visit HPI Details - The patient is a 43-year-old female pr esenting with management of Essential Hypertension. - Currently on Lisinopril without side e ffects, specifically no cough. - Persistent Vitamin D Deficiency noted in past lab reports. - Inconsistent supplementation despite a vailability at home. - Past musculoskeletal discomfort experi enced during coughing or sneezing, now significantly improved. Problem List - Essential Hypertension - Vitamin D Deficiency Patient Instructions - Continue taking Lisinopril as prescrib ed for blood pressure management. - Begin a consistent regimen of Vitamin D supplementation at home as advised. - Schedule laboratory tests for fasting labs due for blood pressure management and vitamin levels. - Remember fasting requirements before l ab work. - Keep the upcoming appointment in [facility] for a physical examination. Review of Systems - Musculoskeletal: Reports past discomfo rt during coughing or sneezing, much improved. - General: No fever no chills - Neurological: No headaches no dizziness - Ear nose throat: No sore throat no hearing difficulty no ear pain - Cardiovascular: No syncope, no chest pain, no palpitations - Gastrointestinal: No nausea vomiting or diarrhea - Endocrine: No polyuria polydipsia no heat intolerance - Genitourinary: No dysuria , no blood in urine Physical Exam - General: No acute distress - HEENT: No acute findings - Neck: Supple - Respiratory system: Able to talk in f ull sentences, no audible wheeze - cardiovascular: S1-S2 regular in rat e and rhythm - Gastrointestinal: No pain - Extremities: No new findings - M[employer]: Alert awake oriented x3 motor se nsory intact - Skin: Normal turgor PFSH Medical History Plantar fasciitis Family History Sister Substance use disorder Mental health disorder Skin cancer Maternal Grandfather Substance use disorder Maternal Grandmother Substance use disorder Mother Mental health disorder Pancreatic cancer Coronary arteriosclerosis Social History Housing: House Patient Tobacco Use Status: Former Tobacco user e-Cigarette/Vaping Use: Currently Using Substance Use Type: Marijuana and Painkillers service: No Current occupational status: employed Cognitive needs: No Hearing needs: No Vision needs: Yes Questionnaire PHQ-9 Over the last 2 weeks, how often have you been bothered by any of the following problems? 1. Little interest or pleasure in doing things: several days 2. Feeling down, depressed, or hopeless: several days 3. Trouble falling or staying asleep, or sleeping too much: several days 4. Feeling tired or having little energy: several days 5. Poor appetite or overeating: not at all 6. Feeling bad about yourself - or that you are a failure or have let yourself or your family down: not at all 7. Trouble concentrating on things, such as reading the newspaper or watching television: not at all 8. Moving or speaking so slowly that other people could have noticed. Or the opposite - being so fidgety or restless that you have been moving around a lot more than usual: not at all 9. Thoughts that you would be better off or of hurting yourself in some way: not at all Total score: 4 Depression Screening Interpretation: Negative Depression Screening Done: Yes 76850 - PHQ-9 Billing: Yes Source: Developed by Drs. Buddy Moore, Lacey Chu, Aman Vang and colleagues, with an educational angeli from [employer]. Thrive Questionnaire Date Thrive assessed: 06/09/24 I am a: Patient What is your living situation today?: I have a steady place to live Within the past 12 months, did the food you bought not last and you didn't have the money to get more?: Never true Within the past 12 months, did you worry whether your food would run out before you got money to buy more?: Never true Do you have trouble paying for medicines?: No Do you have trouble getting transportation to medical appointments?: No Do you have trouble paying your heating and electricity bill?: I choose not to answer this question Do you have trouble taking care of your child, family member or friend?: No Do you have trouble with day-to-day activities such as bathing, preparing meals, shopping, managing finances, etc.?: No Are you currently unemployed and looking for a job?: No Are you interested in more education?: No Please select the resources that you would like help with: None Currently or been in a relationship where the following occur: No concerns reported THRIVE Score: 0 AUDIT C Alcohol Use Questionnaire (AUDIT-C) 1. How often do you have a drink containing alcohol?: 4 or more times a week 2. How many drinks containing alcohol do you have on a typical day when you are drinking?: 3 or 4 3. How often do you have six or more drinks on one occasion?: Less than monthly Total Score: 6 Score Reviewed/Action Taken: Yes ALICIA-7 AMB Questionnaire ALICIA-7 Date ALICIA - 7 assessed: 06/09/24 Feeling nervous, anxious, or on edge: 1 = Several days Not being able to stop or control worryin = Several days Worrying too much about different things: 1 = Several days Trouble relaxin = Several days Being so restless that it is hard to sit still: 0 = Not at all Becoming easily annoyed or irritable: 1 = Several days Feeling afraid as if something awful might happen: 0 = Not at all Total ALICIA-7 score (0-4 normal; 5-9 mild; 10-14 moderate; 15-21 severe): 5 Source: Developed by Drs. Buddy Mooer, Lacey Chu, Aman Vang and colleagues, with an educational angeli from [employer]. ALICIA-7 Assessment Billing ALICIA-7 Assessment Tool: ALICIA-7 Assessment 26239 Physical exam (Primary Care) Vital Signs: Last Vital Signs Pulse 95 06/09/24 08:34 BP 126/84 06/09/24 08:34 Pulse Ox 99 06/09/24 08:34 Oxygen Delivery Method Room Air 06/09/24 08:34 BMI result Body Mass Index 34.8 Tobacco/Smoking Status: Tobacco use Status Tobacco use date assessed 06/09/24 06/09/24 08:37 Patient Tobacco Use Status Former Tobacco user 06/09/24 08:37 e-Cigarette/Vaping Use Currently Using 06/09/24 08:37 PHQ-9: PHQ-9 Score PHQ-9: Total score 4 06/09/24 08:37 Depression Screening Interpretation: Negative Thrive Assessment: Date of Thrive Assessment Date Thrive assessed 06/09/24 06/09/24 08:37 Currently or been in a relationship where the following occur: No concerns reported Coding Level of Care Code Est Pt Level 3 (35862) Diagnoses Primary hypertension I10 Hypertension type: primary hypertension Class 1 obesity due to excess calories with serious comorbidity and body mass index (BMI) of 34.0 to 34.9 in adult E66.09; Z68.34 Obesity classification: adult class 1 (BMI 30 - 34.9) Serious obesity comorbidity presence: with serious comorbidity Body mass index: BMI 34.0-34.9 Additional Codes ALICIA-7 Assessment Billing - ALICIA-7 Assessment Tool: ALICIA-7 Assessment 90344 ([id number]) PHQ-9 - 60546 - PHQ-9 Billing: Yes ([id number]) Assessment & Plan Assessment & Plan (1) Hypertension: Comment: Started on 5 mg Lisinopril. Patient will continue to take blood pressure measurements at home. Patient has been educated to limit salt intake. Code(s): I10 - Essential (primary) hypertension Category: Medical Qualifiers: Hypertension type: primary hypertension Qualified Code(s): I10 - Essential (primary) hypertension (2) Obesity due to excess calories: Code(s): E66.09 - Other obesity due to excess calories Category: Medical Qualifiers: Obesity classification: adult class 1 (BMI 30 - 34.9) Serious obesity comorbidity presence: with serious comorbidity Body mass index: BMI 34.0-34.9 Qualified Code(s): E66.09 - Other obesity due to excess calories; Z68.34 - Body mass index [BMI] 34.0-34.9, adult Plan - The patient is a 43-year-old female presenting with management of Essential Hypertension. - Currently on Lisinopril without side effects, specifically no cough. - Persistent Vitamin D Deficiency noted in past lab reports. - Inconsistent supplementation despite availability at home. - Past musculoskeletal discomfort experienced during coughing or sneezing, now significantly improved. Problem List - Essential Hypertension - Vitamin D Deficiency - obesity Patient Instructions - Continue taking Lisinopril as prescribed for blood pressure management. - Begin a consistent regimen of Vitamin D supplementation at home as advised. - Schedule laboratory tests for fasting labs due for blood pressure management and vitamin levels. - Remember fasting requirements before lab work. - Keep the upcoming appointment in January for a physical examination. - diet and exercise is recommending to lose weight
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
--- OUTSIDE RECORDS SUMMARY | 2024-06-09 08:50 | XMS_ITS | Patient Health Record ---
Author Organization [employer] [facility] Address [address] [place] [address] Care Team Providers Care Track Maintainer Name Role Phone BREE WELLINGTON Unavailable [phone] Allergies Allergen (clinical drug ingredient) Drug/Non Drug Allergy documented on EMR Reaction Allergy Type Onset Date Status PENICILLIN Nausea/Vomiting/ Diarrhea Drug Allergy Active Results Component Value Reference Range Notes Test, Urine (Not y et reviewed by provider) Interpretation: Performing Lab: Notes/Report: Test, Urine NEG Reason For Referral No Information Medications Medication SIG (Take, Route, Fr equency, [...] points) Points 8 Interpretation Positive Section Notes: Marital status: single, significant other - getting back with ex 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 Nutrition: good diet Exercise: occasional walking Sexual activity: Heterosexual Alcohol: rare alcohol Seatbelt: no 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 Nutrition: good diet Exercise: occasional walking Sexual activity: Heterosexual Alcohol: rare alcohol Seatbelt: no 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 Nutrition: good diet Exercise: occasional walking Sexual activity: Heterosexual Alcohol: rare alcohol Seatbelt: no 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 Nutrition: good diet Exercise: occasional walking Sexual activity: Heterosexual Alcohol: rare alcohol Seatbelt: no 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 Nutrition: good diet Exercise: occasional walking Sexual activity: Heterosexual Alcohol: rare alcohol Seatbelt: no 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 Nutrition: good diet Exercise: occasional walking Sexual activity: Heterosexual Alcohol: rare alcohol Seatbelt: no 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 Nutrition: good diet Exercise: occasional walking Sexual activity: Heterosexual Alcohol: rare alcohol Seatbelt: no 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 Nutrition: good diet Exercise: occasional walking Sexual activity: Heterosexual Alcohol: rare alcohol Seatbelt: no Problems Problem Type SNOMED Code ICD Code Onset Dates Problem Status W/U Status Risk Notes Problem Depressive disorder (43180593) Depressive disorder, not elsewhere classified (311) Active confirmed Problem History of dysplasia of cervix (875939034) Personal history of cervical dysplasia (V13.22) Active confirmed Problem Secondary amenorrhea (440485335) Secondary amenorrhea (N91.1) Active confirmed Problem Amenorrhea (67828542) Amenorrhea, unspecified (N91.2) Active confirmed Problem Abnormal uterine bleeding (41743778588424) Abnormal uterine and vaginal bleeding, unspecified (N93.9) Active confirmed Problem Dysmenorrhea (948699646) Dysmenorrhea, unspecified (N94.6) Active confirmed Problem Obese class II (062990642688452 ) Body mass index [BMI] 35.0-35.9, adult (Z68.35) Active confirmed Problem Irritable bowel syndrome (96905638) Irritable bowel syndrome (564.1) Active confirmed Major Vital Signs Temperature 97.1 degrees Fahrenheit 07/16/2023 Blood pressure diastolic 82 mm Hg 07/16/2023 Height 63 in 07/16/2023 Blood pressure systolic 112 mm Hg 07/16/2023 Weight 201 lbs 07/16/2023 BMI 35.6 kg/m2 07/16/2023 Encounters Encounter Location Date Provider Diagnosis [place] [address] [address] 06/20/2023 BREE WELLINGTON Encounter for gynecological examination (general) (routine) without abnormal findings Z01.419 and Encounter for screening mammogram for malignant neoplasm of breast Z12.31 [facility] [address] 07/16/2023 BREE WELLINGTON Secondary amenorrhea N91.1 Assessments Encounter Date Diagnosis (ICD Code) Assessment Notes Treatment Notes Treatment Clinical Notes Section Notes 06/20/2023 Encounter for gynecological examination (general) (routine) without abnormal findings (ICD-10 - Z01.419) Discussed cervical cancer screening with either cytology alone every 3 years or high risk HPV co-testing every 5 years as per ASCCP guidelines. Advised continued annual pelvic exams. Patient encouraged to increase her level of exercise. SBE technique encouraged/taug ht. Patient reminded when annual mammogram is due. 06/20/2023 Encounter for screening mammogram for malignant neoplasm of breast (ICD-10 - Z12.31) 07/16/2023 Secondary amenorrhea (ICD-10 - N91.1) Likely an anovulatory cycle. Will wait for menses or induce a menstrual period with Prometrium, and check Day 2-3 labs for clarification. Plan Of Treatment Pending Test Test Name Order Date Test, Urine 07/16/2023 PAP SMEAR 09/09/2014 FSH 07/16/2023 LH 07/16/2023 THIN PREP,HPV,OK IF HPV+ (>29YR)(DIAG) 03/29/2022 THIN PREP,HPV,OK IF HPV+ (>29YR)(SCRN) 01/22/2017 TSH WITH REFLEX TO FT4 07/16/2023 PROLACTIN WITH REFLEX TO MONOMERIC 07/15 MM Digital Screening Mammogram 3D 2021 MM Digital Screening Mammogram 3D 2023 Next Appt Details Provider Name:BREE Ch, 06/30/2024 08:00:00 AM, [address] [facility] [facility], [address], [place], [address], Insurance Providers Payer Name Payer Address Payer Phone Subscriber Number Group Number Insured Name Patient Relationship to Insured Coverage Start Date Coverage End Date [employer] [place] [address] [place] [address] [id number] LISSET COLE Self - patient is the insured Medical (General) History Medical History History ICD Code Irritable bowel syndrome Dysmenorrhea Depressive disorder, not elsewhere class ified Personal history of cervical dysplasia COVID-19 U07.1 Surgical History Surgery Date(Month/Year) cervical cone biopsy 2007 Hospitalization History Reason Date(Month/Year) 2 Vaginal Deliveries
--- OUTSIDE RECORDS SUMMARY | 2024-06-09 08:50 | XMS_ITS ---
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 [place] [address] 06/20/2023 BREE WELLINGTON Encounter for gynecological examination (general) (routine) without abnormal findings Z01.419 and Encounter for screening mammogram for malignant neoplasm of breast Z12.31 Assessments Encounter Date Diagnosis (ICD Code) Assessment [...] increase her level of exercise. SBE technique encouraged/tau ght. Patient reminded when annual mammogram is due. 06/20/2023 Encounter for screening mammogram for malignant neoplasm of breast (ICD-10 - Z12.31) Plan Of Treatment Treatment Notes Assessment Notes Encounter for gynecological examination (general) (routine) without abnormal findings Discussed cervical cancer screening with either cytology alone every 3 years or high risk HPV co-testing every 5 years as per ASCCP guidelines. Advised continued annual pelvic exams. Patient encouraged to increase her level of exercise. SBE technique encouraged/taught. Patient reminded when annual mammogram is due. Pending Test Test Name Order Date MM Digital Screening Mammogram 3D 2023 Next Appt Details Follow Up: 1 Year, Reason: Y early Administrative Assistant Receptionist Exam Provider Name:BREE Ch, 06/30/2024 08:00:00 AM, [address], [address], [place], [address], Progress Notes * KATY COLEOB: 2 (42 yo F)Acc No.[id number]:06/20/2023 PROGRESS NOTES Patient:?LISSET COLE Provider:?BREE WELLINGTON MD :1980???Age:42 Y???Sex:Female D ate:06/20/2023 Address:[address] [place] [address] Subjective: * Chief Complaints: * ???Annual TIMERS INSPECTOR Physical * HPI: ???Constitutional:? Lisset is a 42 yo with LMP 05/28/23 who presents for her yearly body worker exam. ? She has been in state of good health since her last exam. She has been diagnosed with HTN, and she just started lisinopril today. She has the following concerns: she reports a ?skin tag on the left labia ? She has received the Eigenta Covid-19 vacccine. ? Relationship status: for 4 years. She is sexually active. Sexual partner(s): male. She does not wish to have STI testing. ? Menses: monthly, lasting 4 days - with excruciating pain for the first day (been that way for years), the first day is very heavy, with clots (the largest about quarter-sized). She saturates a regular tampon in a couple of hours on the first day. Discussed using NSAIDs prior to menses. ? Contraception: none - she doesn't care if she gets or not. Is not currently taking folic acid. Discussed the importance of not conceiving while on lisinopril. Encouraged prevention. ? She does not report vaginal dryness. She does not have hot flashes/night sweats. ? The patient has not had an abnormal pap smear within the last 5 years. Her most recent pap smear was 03/29/22 - NIL, neg HR HPV. Has a remote history of cone biopsy in 2007. NIL paps since. Due for cotesting in 03/2025. ? She has not been diagnosed with breast cancer. She does not have a family history of breast cancer. Her last mammogram was 04/18/2023. The breasts are heterogeneously dense. ? The patient does not exercise. She wants to return to the gym, as she doesn't like what the scale says. * ROS:?Annual Administrative Assistant Receptionist Exam ROS:?Bowel habit changes?denies.?Bladder symptoms?denies.?Vaginal discharge, unusual?denies.?Vaginal itch or odor?denies.?abnormal bleeding?denies.?weight or appetite changes?denies.?Chest pains, SOB?denies.?depression?denies.?Breast:?Denies?Breast lump.?Denies?Nipple discharge.?Hematology:?Denies?Swollen glands.?Skin:?Patient denies?changing moles.?Psychiatric:?Admits?Anxiety,? goes with the flow ;? listens to music; hasn't gotten anything out of therapy - has opportunities for therapy if she'd like.? * Medical History:? * Administrative Assistant Receptionist History:?/ Para?2/2.?Sexual activity?currently sexually active.?Last Pap Smear:?03/29/22 NIL, NEG HPV, 01/2017 NIL, NEG HRHPV.?Abnormal Pap Smear:?CONE BX 2007, NIL paps since.?LMP and menses?05/28/23.?History of STD's:?none.? Control:?None since age 35.? * OB History:?Total pregnancies?.?NVD?2.? # 1:?normal spontaneous vaginal delivery (), 11/22/2002, Paul 6lb 14oz, no complications.? # 2:?normal spontaneous vaginal delivery (), 06/09/04, Arden, 9lb 3oz, no complications.? * Surgical History:?cervical c one biopsy 2007 * Hospitalization/Major Diagno stic Procedure:?2 Vaginal Deliveries * Family History:?Mother: aliv e 70 yrs, PANCREATIC CA (~2009), HYPOTHYROIDISM.?Father: [...] ?Marital status: , Nguyễn - 2019. 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 ?Others at home: sons, Paul's girlfriend (and her dog - a [place] terrier). ?Pets: dogs: 2 huskies. ?no Sexual abuse. [...] reconciled with the patient * Allergies:?PENICILLIN: Nause a/Vomiting/Diarrhea Objective: * Vitals:?Ht: 63 in, Wt:201 lb s, BMI:35.6 Index, BP:132/98 mm Hg, Temp:97.3 F. * Examination: ???General Examination: ?GENERAL APPEARANCE:?in no acute distress, well developed, well nourished, conditioner tender present in room.?HEAD:?normocephalic, atraumatic.?NECK/THYROID:?neck supple, full range of motion, thyroid normal.?LYMPH NODES:?no axillary or supraclavicular adenopathy.?SKIN:? normal, good turgor, no rashes, no suspicious lesions.?BREASTS:?normal, no dimpling, no discharge, no drainage, no masses palpable bilaterally, nontender.?ABDOMEN:? soft, non-tender, non distended without masses or hepatosplenomegay.?RECTAL:? normal tone, no masses palpable.?BACK:? no costovertebral angle tenderness.?FEMALE GENITOURINARY:?Vulva without lesions or masses, left labia minora with small fibroepithelial polyp at anterior aspect, vagina pink without abnormal discharge, lesions or masses, cervix appears normal and is not tender to palpation, uterus is normal size, mobile, nontender and anteverted, ovaries are not palpable.?NEUROLOGIC:? alert and oriented, gait normal.?PSYCH:? alert, oriented, cognitive function intact, cooperative with exam, good eye contact, mood/affect full range, speech clear.? Assessment: * Assessment: 1.?Encounter for gynecologic al examination (general) (routine) without abnormal findings - Z01.419 (Primary)?2.?Encounter for screening mammogram for malignant neoplasm of breast - Z12.31? Plan: * Treatment: 2.?Encounter for screening m ammogram for malignant neoplasm of breast?Imaging: MM Digital Screening Mammogram 3D * Procedure Codes:? * Preventive Medicine:?[email or web address] ~~~~~~~~~~~~~ STRENGTH TRAINING ~~~~~~~~~~~~~ Anyone, at any fitness level, can and should add strength training to their routine. Strength training is an important part of an overall fitness program, mainly because lean muscle mass naturally diminishes with age. You'll increase the percentage of fat in your body if you don't do anything to replace the lean muscle you lose over time. Strength training can help you preserve and enhance your muscle mass (at any age!), develop strong bones and reduce the risk of osteoporosis, manage or lose weight and increase your metabolism to help you burn more calories. It will also improve your ability to do everyday activities and reduce symptoms of chronic conditions such as arthritis, back pain, obesity, heart disease and diabetes. Some research suggests that regular strength training may help improve thinking and learning skills. Don't be intimidated. You can strength train at home or in the gym, and you have plenty of options. You can rely on your body weight and do many exercises with little or no equipment, like pushups, pullups, planks and leg squats. Or you can go pro and choose to go with resistance tubing (a lightweight tubing that provides resistance when stretched), free weights like barbells and dumbbells, or weight machines at the gym. ~~~~~~~~~~~~~~~~~~~~~~~~~~~~~~~~~~~~~~~~~~~ SARCOPENIA AND THE IMPORTANCE OF STRENGTH TRAINING EXERCISE ~~~~~~~~~~~~~~~~~~~~~~~~~~~~~~~~~~~~~~~~~~~ What is sarcopenia? ~~~~~~~~~~~~ Sarcopenia refers to the process of losing skeletal muscle mass and strength. 'Sarco' is the Bengali word referring to flesh, and 'penia' means a reduction in amount. Thus, the word describes a progressive weakening of the body caused by a 'change in body compensation in favor of fat and at the expense of muscle.' Everyone, beginning around age 25, starts to lose muscle mass, though the actual symptoms of this loss do not usually begin showing up until around the age of 40 or so. The process begins really picking up speed after the age of 65. In fact, around the age of 40, most women will lose almost a half-pound of muscle every year and replace it with fat. The result of this gradual loss of muscle is an insidious weakening of the body, loss of balance, loss of confidence upon walking, and a reduced ability to recover from near falls. As we lose strength, we become more inactive. This makes sense, because if we have less muscle, it takes much more effort to move, and we fatigue more easily. But also, with loss of strength comes loss of balance and stability. The fear of falling keeps many people sedentary, and a sedentary lifestyle opens the door for chronic illness. ~~~~~~~~~~~~~~ Take back your muscle ~~~~~~~~~~~~~~ And now for great news: you can delay sarcopenia and even reverse it. How? By lifting weights. Even though you cannot grow new muscles cells to replace the ones you have already lost, you can develop the ones that you have left. In fact, you can become stronger than you ever have in your life by simply beginning a strength training program. No matter how old you are, it is not too late to start. Even patients in nursing homes have seen transformation. After strength training, bedridden patients were able to begin walking with walkers, walker-dependent patients graduated to canes, and so on. And no matter how young you are, it is not too early to start! By starting early, you can significantly delay the effects of sarcopenia. As you begin lifting weights, you will notice a transformation in your body. You will have more energy, you will perform everyday tasks with noticeably more ease and your clothes will begin sagging on you, because you will be building muscle and burning up the fat deposits. You will have greater balance and more confidence. And perhaps best of all is the insurance policy you pay premiums on every time you choose to lift, because you are laying a strong, solid foundation for your later years. You are laying up health, independence and the ability to live well, not just long. DON'T LET ANOTHER DAY GO BY THAT YOU ARE LOSING MUSCLE. Take it back, and get ready to feel better than you ever have!. * Follow Up:?1 Year (Reason: Y early Administrative Assistant Receptionist Exam) * Images: Billing Information: * Visit Code:? 38791 Preventive Care Est Pt. Age 40-64. * Procedure Codes:? * Sign off status: Completed true * Provider:?BREE WELLINGTON MD Date:?2023 Generated for Oliva frazier/Jorge/eTransmitting on:?06/09/2024 08:50 AM EST History and Physical Notes * HPI (History of Present Illness) Category Sub-Category Detail Notes Category Not es Constitutional Lisset is a 42 yo with LMP 05/28/23 who presents for her yearly body worker exam. She has been in state of good health since her last exam. She has been diagnosed with HTN, and she just started lisinopril today. She has the following concerns: she reports a ?skin tag on the left labia She has received the Eigenta Covid-19 vacccine. Relationship status: for 4 years. She is sexually active. Sexual partner(s): male. She does not wish to have STI testing. Menses: monthly, lasting 4 days - with excruciating pain for the first day (been that way for years), the first day is very heavy, with clots (the largest about quarter-sized). She saturates a regular tampon in a couple of hours on the first day. Discussed using NSAIDs prior to menses. Contraception: none - she doesn't care if she gets or not. Is not currently taking folic acid. Discussed the importance of not conceiving while on lisinopril. Encouraged prevention. She does not report vaginal dryness. She does not have hot flashes/night sweats. The patient has not had an abnormal pap smear within the last 5 years. Her most recent pap smear was 03/29/22 - NIL, neg HR HPV. Has a remote history of cone biopsy in 2007. NIL paps since. Due for cotesting in 03/2025. She has not been diagnosed with breast cancer. She does not have a family history of breast cancer. Her last mammogram was 04/18/2023. The breasts are heterogeneously dense. The patient does not exercise. She wants to return to the gym, as she doesn't like what the scale says. Examination Category Sub-Category Detail Notes Category Not es General Examination GENERAL APPEARANCE: in no ac je distress, well developed, well nourished, conditioner tender present in room HEAD: normocephalic, atrau matic NECK/THYROID: neck supple, full ra nge of motion, thyroid normal ABDOMEN: soft, non-tender, no n distended without masses or hepatosplenomegay NEUROLOGIC: alert and oriented, gait normal SKIN: normal, good turgor, no rashes, no suspicious lesions BACK: no costovertebral an gle tenderness BREASTS: normal, no dimpling, no discharge, no drainage, no masses palpable bilaterally, nontender LYMPH NODES: no axillary or supra clavicular adenopathy RECTAL: normal tone, no mass es palpable PSYCH: alert, oriented, cog nitive function intact, cooperative with exam, good eye contact, mood/affect full range, speech clear FEMALE GENITOURINARY: Vulva without lesi ons or masses, left labia minora with small fibroepithelial polyp at anterior aspect, vagina pink without abnormal discharge, lesions or masses, cervix appears normal and is not tender to palpation, uterus is normal size, mobile, nontender and anteverted, ovaries are not palpable
--- OUTSIDE RECORDS SUMMARY | 2024-06-09 08:50 | XMS_ITS ---
Author Organization [facility] Address [address] [facility] [address] [place] [address] Care Team Providers Care Associate Professor Of Sociology Name Role Phone BREE WELLINGTON Unavailable [phone] REASON FOR VISIT Annual ASSISTANT DIRECTOR OF ADMISSIONS Physical Encounters Encounter Location Date Provider Diagnosis [facility] [address] [place] [address] 04/18/2023 BREE WELLINGTON Plan Of Treatment Next Appt Details Provider Name:BREE Ch, 06/30/2024 08:00:00 AM, [address] [place] [address], [address], [place], [address], Progress Notes * KATY COLEOB: 2 (43 yo F)Acc No.[id number]:04/18/2023 PROGRESS NOTES Patient:?LISSET COLE Provider:?BREE WELLINGTON MD :1980???Age:42 Y???Sex:Female D ate:04/18/2023 Address:[address] [place], [place] [id number] Subjective: * Chief Complaints: * ???1. Annual ASSISTANT DIRECTOR OF ADMISSIONS Physical. * Medical History:? Objective: * Vitals:? Assessment: Plan: * Treatment: * Images: Billing Information: * Visit Code:? * Procedure Codes:? * Electronic signature of BREE WELLINGTON MD on 06/09/2024 at 08:49 AM EST Sign off status: Pending * Provider:?BREE WELLINGTON MD Date:?2022 Generated for Oliva frazier/Jorge/eTransmitting on:?06/09/2024 08:49 AM EST
== END 2024-06-09 11:39 | disposition home or self-care (01) ==
PROVIDERS: PCP Internal Medicine; Visit Provider Internal Medicine
DX: I10 Essential (primary) hypertension (principal); E66.09 Other obesity due to excess calories; Z68.34 Body mass index [BMI] 34.0-34.9, adult

== ENCOUNTER → 2024-06-09 08:30 | Outpatient (BNVA) | payer BC, SELFPAY | PROVIDERS: PCP Internal Medicine; Visit Provider Internal Medicine | DX: I10 Essential (primary) hypertension (principal); E66.09 Other obesity due to excess calories; Z68.34 Body mass index [BMI] 34.0-34.9, adult; E55.9 Vitamin D deficiency, unspecified; Z79.899 Other long term (current) drug therapy | CPT/HCPCS: 96127 ==

== ENCOUNTER 2024-11-22 09:20 | Emergency (ER) | payer BC, SELFPAY ==
--- NOTE | ~2024-11-22 | CT_ITS ---
CLINICAL HISTORY: abdominal pain CT abdomen and pelvis with contrast Comparison: None provided Findings: No consolidation or effusion. There is a 14 mm left adrenal nodule, likely an adenoma. Remaining abdominal organs are unremarkable. There are no calcified gallstones. No bowel obstruction, pneumoperitoneum, or pneumatosis. There is a 7 cm cyst within the right ovary. Pelvic contents are otherwise unremarkable. The appendix is normal. No acute fracture. IMPRESSION: There is a 7 cm right ovarian cyst. Recommend further evaluation with ultrasound. This document has been electronically signed by: Mary Ann Weinberg MD on 11/22/2024 15:57:00
[2024-11-22 09:21] VITALS: BP 179/117; PULSE 88; RESP 20; TEMP 35.6; O2SAT 99; BMI 36.4
[2024-11-22 10:02] LABS: MANUAL DIFF FLAG NO
[2024-11-22 10:04] LABS: Hematocrit 41.7 % (37.0-47.0); Hemoglobin 14.9 g/dl (12.0-16.0); Imm Gran Abs Auto 0.09 X10*3/uL (0.00-0.03); Imm Gran Pct Auto 0.7 % (0.0-0.4); Lymphocytes Absolute Auto 2.7 X10*3/uL (1.2-4.9); Mean Corpuscular HGB Conc 35.7 g/dl (31.0-35.0); Mean Corpuscular Hemoglobin 30.2 pg (27.0-33.0); Mean Corpuscular Volume 84.6 fL (80.0-98.0); NRBC Abs Auto 0.000 X10*3/uL (0.0-0.012); NRBC Pct Auto 0.0 /100WBC (0.0-0.2); Platelet Count 310 X10*3/uL (160-400); Red Blood Count 4.93 X10*6/uL (4.20-5.50); White Blood Count 12.8 X10*3/uL (4.8-10.8)
[2024-11-22 10:24] LABS: Alanine Aminotransferase 21 U/L (0-31); Albumin Level 5.0 g/dL (3.5-5.0); Alkaline Phosphatase 92 U/L (39-117); Anion Gap 20 (12-20); Aspartate Amino Transferase 27 U/L (5-31); Blood Urea Nitrogen 18 mg/dL (9-16); Calcium 10.3 mg/dL (8.4-10.2); Carbon Dioxide 19 mmol/L (22-29); Chloride 106 mmol/L (96-108); Creatinine Clr Calc Pharmacy 97.1; Estimated Glomerular Filt Rate > 60; Lipase 31 U/L (8-78); Magnesium 1.9 mg/dL (1.6-2.6); Potassium 4.1 mmol/L (3.3-5.1); Sodium 141 mmol/L (135-145); Total Protein 8.1 g/dL (6.5-8.0)
[2024-11-22 10:40] LABS: Resp Syncy Virus RNA Qual PCR NEGATIVE (Negative); SARS COV2 PCR INHOUSE NEGATIVE (Negative)
--- NOTE | 2024-11-22 10:46 | ECG_ITS ---
Test Reason : WEAKNESS Blood Pressure : */* mmHG Vent. Rate : 75 BPM Atrial Rate : 87 BPM P-R Int : 146 ms QRS Dur : 78 ms QT Int : 408 ms P-R-T Axes : 30 4 19 degrees QTcB Int : 455 ms Sinus rhythm with marked sinus arrhythmia Possible Anterior infarct , age undetermined Abnormal ECG No previous ECGs available Referred By: Daniel Wolf Electronically Signed By: SHLOMO SPRAGUE
--- NOTE | 2024-11-22 10:46 | ED.ABDPAIN ---
HPI - Abdominal Pain General Chief Complaint: Abdominal Pain Stated Complaint: vomiting, right shoulder pain, chills Time Seen by Provider: 11/22/24 10:42 Source: patient and family () Mode of arrival: ambulatory Limitations: no limitations History of Present Illness ED Provider: HPI narrative: Presenting with abdominal pain vomiting diarrhea, nonspecifically right shoulder pain, where at [facility], had a GI reaction from food out there, and then they came back and she ate a sandwich and woke up 05:00 in the morning feeling like this. Restless, anxious affect, no chest pain, has been at bedside he had similar symptoms but they have resolved. Related Data Previous Rx's ?Medication ?Instructions ?Recorded diclofenac sodium 75 mg 75 mg PO Q12H PRN pain #60 tabs 04/24/24 tablet,delayed release lisinopril 5 mg tablet 5 mg PO DAILY #90 tabs 09/16/24 diazepam 2 mg tablet (Valium) 2 mg PO TID PRN spasms 2 days #6 11/22/24 tabs dicyclomine 10 mg capsule 10 mg PO TID PRN cramps #10 caps 11/22/24 prochlorperazine 25 mg rectal 25 mg RI Q8-10H PRN nausea and 11/22/24 suppository (Compazine) vomiting #12 ea sucralfate 100 mg/mL oral 10 ml PO QID #300 mL 11/22/24 suspension (Carafate) Allergies Allergy/AdvReac Type Severity Reaction Status Date / Time Penicillins AdvReac Stomach Verified 11/22/24 09:25 Upset Review of Systems Constitutional: Reports as per HPI [facility] Past Medical History Medical History Plantar fasciitis Family History Family History Sister Substance use disorder Mental health disorder Skin cancer Maternal Grandfather Substance use disorder Maternal Grandmother Substance use disorder Mother Mental health disorder Pancreatic cancer Coronary arteriosclerosis Social History Social History Housing: House Alcohol intake: current Alcohol intake frequency: 3 or more drinks per day Patient Tobacco Use Status: Former Tobacco user Smoked in Last 30 Days: No e-Cigarette/Vaping Use: Currently Using Use of substances other than those prescribed or required for medical reasons: Yes Substance Use Type: Marijuana Advance Directives: No Advance Directives Information Provided: Yes Do you have a plan to hurt others: No Plan service: No Current occupational status: employed Cognitive needs: No Hearing needs: No Vision needs: Yes Physical Exam ED Vital Signs: Vital Signs - 24 hr 11/22/24 09:21 11/22/24 12:58 11/22/24 14:47 Temperature 96.1 F L 98.1 F 98.1 F Pulse Rate 88 71 95 Respiratory Rate 20 22 H 29 H Blood Pressure 179/117 H 182/91 H 159/76 H Pulse Oximetry 99 100 96 Oxygen Delivery Method Room Air Room Air Room Air BMI result Body Mass Index 36.4 Const Other: Gen: ?Sweaty, does not feel well HEENT: PERRLA, EOMI, MMM, Neck: Supple, no LAD CV: RRR, no obvious murmurs appreciated Resp: ?No wheezing rales rhonchi no stridor moving air well Abd: ?Bowel sounds are present, generalized tenderness, no focal tenderness no rebound no rigidity MSK: FROM, strength 5/5 all extremities Skin: Warm, dry, intact, sweaty, no rashes Neuro: ?Alert and oriented x3, moving upper and lower extremities symmetrically, no obvious facial asymmetry noted Medical Decision Making Medical Decision Making MDM Narrative: Unlikely this is cardiac related she has complain of shoulder pain that is likely unrelated and musculoskeletal she is mostly here with what sounds like a GI food-borne illness had this at [facility] and then ate and this has restarted, blood work reassuring, but she is uncomfortable symptomatic control re-evaluation and we will determine whether CT abdomen and pelvis is indicated. 233 p.m. patient has been re-evaluated, she continues to have nausea and abdominal pain, additional dose of Zofran was provided she was still nauseous unable to take any p.o. meds, I ordered droperidol and Benadryl 16:05 patient is finally has improved, CT findings discussed with the patient and family, there was no evidence for infectiou etiology, this is a 7 cm ovarian cyst otherwise pelvic contents are normal, she is presenting with nausea vomiting diarrhea and shaking chills with a GI infection that her also has had but is better, this is not consistent with ovarian torsion did not feel that further imaging such as ultrasound is indicated. Gave the option of for patient to be admitted she states that she will come back if she feels worse. Differential Diagnosis Differential Diagnoses: The differential diagnosis associated with the presentation includes Cholecystitis, pancreatitis, hepatitis, gastritis, cholangitis, choledocholithiasis, diverticulitis, infectious colitis, ACS Admission/Observation Consideration of admission/observation: Escalation of care including admission/observation considered Lab Data 11/22/24 09:54 11/22/24 09:54 Labs: Lab Results 11/22/24 11/22/24 Range/Units 09:54 14:09 WBC 12.8 H (4.8-10.8) X10*3/uL RBC 4.93 (4.20-5.50) X10*6/uL Hgb 14.9 (12.0-16.0) g/dl Hct 41.7 (37.0-47.0) % MCV 84.6 (80.0-98.0) fL MCH 30.2 (27.0-33.0) pg MCHC 35.7 H (31.0-35.0) g/dl RDW 12.8 (11.0-16.0) % Plt Count 310 (160-400) X10*3/uL MPV 9.7 (9.4-12.3) fL Immature Gran % (Auto) 0.7 H (0.0-0.4) % Neut % (Auto) 72.7 (45-73) % Lymph % (Auto) 21.2 (20-40) % [place] % (Auto) 4.5 (2-11) % Eos % (Auto) 0.6 (0-4) % Baso % (Auto) 0.3 (0-2) % Lymph # (Auto) 2.7 (1.2-4.9) X10*3/uL [place] # (Auto) 0.6 (0.1-1.2) X10*3/uL Eos # (Auto) 0.1 (0.0-0.4) X10*3/uL Baso # (Auto) 0.0 (0.0-0.2) X10*3/uL Abs Immat Gran (auto) 0.09 H (0.00-0.03) X10*3/uL Absolute Neuts (auto) 9.3 H (2.0-8.3) x10*3/uL Absolute Nucleated RBC 0.000 (0.0-0.012) X10*3/uL Nucleated RBC % (auto) 0.0 (0.0-0.2) /100WBC Sodium 141 (135-145) mmol/L Potassium 4.1 (3.3-5.1) mmol/L Chloride 106 (96-108) mmol/L Carbon Dioxide 19 L (22-29) mmol/L Anion Gap 20 (12-20) BUN 18 H (9-16) mg/dL Creatinine 0.84 (0.5-1.4) mg/dL Estim Creat Clear Calc 97.1 Estimated GFR > 60 Random Glucose 163 H (60-115) mg/dL Calcium 10.3 H (8.4-10.2) mg/dL Magnesium 1.9 (1.6-2.6) mg/dL Total Bilirubin 0.8 (0.0-1.0) mg/dL Direct Bilirubin 0.3 (0.0-0.5) mg/dL AST 27 (5-31) U/L ALT 21 (0-31) U/L Alkaline Phosphatase 92 (39-117) U/L Total Protein 8.1 H (6.5-8.0) g/dL Albumin 5.0 (3.5-5.0) g/dL Lipase 31 (8-78) U/L Urine Color Dark Yellow Urine Appearance Turbid Urine pH 5.5 (5.0-9.0) Ur Specific [place] >= 1.030 H (1.005-1.025) Urine Protein 100 (2+) H (Neg-Trace) mg/dL Urine Glucose (UA) Negative (Negative) mg/dL Urine Ketones 40 (Negative) mg/dL Urine Blood Large (3+) H (Negative) Urine Nitrite Negative (Negative) Ur Leukocyte Esterase Negative (Negative) Urine RBC 0-2 (0-2) /HPF Urine WBC 0-5 (0-5) /HPF Ur Squamous Epith Cells >20 (0-2) /HPF Urine Bacteria 1+ (None Seen) Hyaline Casts 0-2 (0-2) /LPF Urine Test NEGATIVE (NEGATIVE) Influenza Type A (PCR) NEGATIVE (Negative) Influenza Type B (PCR) NEGATIVE (Negative) RSV RNA Qual (PCR) NEGATIVE (Negative) SARS-CoV-2 RNA (RT-PCR) NEGATIVE (Negative) Medications Administered Generic Name Dose Route Start Last Admin Trade Name Kamille PRN Reason Stop Dose Admin Lactated Ringer's 1,000 mls @ 0 mls/hr 11/22/24 15:00 11/22/24 15:13 Lr IV 999 mls/hr .Q0M LEANDER Administration Wide Open Discontinued Medications Generic Name Dose Route Start Last Admin Trade Name Kamille PRN Reason Stop Dose Admin Al Hydroxide/Mg Hydroxide 30 ml 11/22/24 10:52 11/22/24 11:41 Magnesium Hydrox/Alum Hydrox 30 Ml Oral.Susp PO 11/22/24 10:53 30 ml ONCE ONE Administration Belladonna Alkaloids/Phenobarbital 10 ml 11/22/24 12:23 11/22/24 14:14 Phenobarb/Hyoscy/Atropine/Scop 10 Ml Elixir PO 11/22/24 12:24 Not Given ONCE ONE Diazepam 5 mg 11/22/24 10:46 11/22/24 11:41 Diazepam 10 Mg/2 Ml Cartridge IVPUSH 11/22/24 10:47 5 mg STAT STA Administration Diphenhydramine HCl 12.5 mg 11/22/24 14:14 11/22/24 14:19 Diphenhydramine Hcl 50 Mg/Ml Vial IVPUSH 11/22/24 14:15 12.5 mg ONCE ONE Administration Droperidol 0.625 mg 11/22/24 14:14 11/22/24 14:20 Droperidol 5 Mg/2 Ml Vial IVPUSH 11/22/24 14:15 0.625 mg ONCE ONE Administration Famotidine 20 mg 11/22/24 10:46 11/22/24 11:40 Famotidine/Pf 20 Mg/2 Ml Vial IVPUSH 11/22/24 10:47 20 mg ONCE ONE Administration Sodium Chloride 1,000 mls @ 999 mls/hr 11/22/24 11:00 11/22/24 13:08 Ns IV 11/22/24 12:00 Infused .Q1H1M LEANDER Infusion Iohexol 100 ml 11/22/24 14:31 11/22/24 14:31 Iohexol 350 Mg/Ml 100 Ml Infus..Btl IV 11/22/24 14:32 85 ml ONCE ONE Administration Ketorolac Tromethamine 15 mg 11/22/24 10:46 11/22/24 11:41 Ketorolac Tromethamine 15 Mg/Ml Vial IM 11/22/24 10:47 15 mg ONCE ONE Administration Morphine Sulfate 4 mg 11/22/24 12:23 11/22/24 12:54 Morphine Sulfate 4 Mg/Ml Cartridge IVPUSH 11/22/24 12:24 4 mg ONCE ONE Administration Protocol Ondansetron HCl 4 mg 11/22/24 10:46 11/22/24 11:41 Ondansetron Hcl 4 Mg/2 Ml Vial IVPUSH 11/22/24 10:47 4 mg ONCE ONE Administration Ondansetron HCl 4 mg 11/22/24 13:01 11/22/24 13:06 Ondansetron Hcl 4 Mg/2 Ml Vial IVPUSH 11/22/24 13:02 4 mg ONCE ONE Administration Prochlorperazine Edisylate 5 mg 11/22/24 15:00 11/22/24 15:10 Prochlorperazine Edisylate 10 Mg/2 Ml Vial IVPUSH 11/22/24 15:01 5 mg ONCE ONE Administration Critical Care Time Critical Care Time Total Critical Care Time: 45 Attestation: Time is exclusive of separately billable procedures. Time includes: direct patient care, patient reassessment, coordination of patient care, interpretation of data (laboratory data, pulse oximetry, arterial blood gases and chest xrays), review of patient's medical records, medical consultation and documentation of patient care. Procedures excluded from critical care time: central intravenous line placement and electrocardiography. Discharge Plan Discharge Clinical Impression: Diarrhea of presumed infectious origin, Nausea and vomiting Patient Disposition: Home, Self-Care Additional Instructions: Evaluated with nausea, vomiting, diarrhea likely food-borne illness. Blood work reassuring, received multiple medications, fluids, felt better, CT as below there was a 7 cm ovarian cyst in the right, 14 mm left adrenal nodule likely an adenoma this is benign, ovarian cyst is something that may need to be monitored by a dough cutting machine operator and you may need outpatient ultrasound for evaluation and for resolution. At home I would like you to stay well hydrated as we discussed, if you are able to tolerate Carafate after you take antiemetics, take it 20 minutes before any meals or even before any brought they will call your stomach make you feel better, Valium to be used only if do just not able to relax and it we will help with nausea if Compazine is not helping. Bentyl is used for abdominal cramping. As far as diarrhea I do not treat it usually it is a better idea and the recommendation is for it to resolve you just have to keep up with fluid losses. Worsening symptoms as we have discussed come back to the ER CT results as below: CLINICAL HISTORY: abdominal pain CT abdomen and pelvis with contrast Comparison: None provided Findings: No consolidation or effusion. There is a 14 mm left adrenal nodule, likely an adenoma. Remaining abdominal organs are unremarkable. There are no calcified gallstones. No bowel obstruction, pneumoperitoneum, or pneumatosis. There is a 7 cm cyst within the right ovary. Pelvic contents are otherwise unremarkable. The appendix is normal. No acute fracture. IMPRESSION: There is a 7 cm right ovarian cyst. Recommend further evaluation with ultrasound. Prescriptions: New diazepam [Valium] 2 mg tablet 2 mg PO TID PRN (Reason: spasms) 2 Days Qty: 6 0RF prochlorperazine [Compazine] 25 mg suppository 25 mg RI Q8-10H PRN (Reason: nausea and vomiting) Qty: 12 0RF dicyclomine 10 mg capsule 10 mg PO TID PRN (Reason: cramps) Qty: 10 0RF sucralfate [Carafate] 100 mg/mL suspension 10 ml PO QID Qty: 300 0RF Rx Instructions: swish in mouth and swallow; use after food/drink No Action lisinopril 5 mg tablet 5 mg PO DAILY Qty: 90 0RF diclofenac sodium 75 mg tablet,delayed release (DR/EC) 75 mg PO Q12H PRN (Reason: pain) Qty: 60 0RF Rx Instructions: take it with food Stand Alone Forms: Work/School Release Print Language: Citizen Of [place]
[2024-11-22] MEDS: diazePAM 10 MG/2 ML CARTRIDGE 5 MG IVPUSH (11:41)
[2024-11-22] MEDS: Magnesium Hydrox/Alum Hydrox 30 ML ORAL.SUSP PO (11:41)
[2024-11-22 12:58] VITALS: BP 182/91; PULSE 71; RESP 22; TEMP 36.7; O2SAT 100
[2024-11-22 14:16] LABS: Appearance Urine Turbid; Glucose Urine UA Negative (Negative); PH 5.5 (5.0-9.0); Specific Gravity - Urine >= 1.030 (1.005-1.025); UMIC TRIGGER UACC YES
[2024-11-22 14:21] LABS: UPreg QC Valid YES
[2024-11-22] MEDS: iohexoL 350 MG/ML 100 ML INFUS..BTL IV (14:31)
--- NOTE | 2024-11-22 14:44 | PC.NURSE ---
oob ambulating to bathroom with steady gait, patient continues to report feeling nauseous , provider aware. Family at bedside
[2024-11-22 14:47] VITALS: BP 159/76; PULSE 95; RESP 29; TEMP 36.7; O2SAT 96
[2024-11-22] MEDS: Lactated Ringers 1,000 ML 999 ML IV (15:13)
[2024-11-22 16:26] VITALS: BP 159/76; PULSE 95; RESP 29; TEMP 36.7; O2SAT 96
== END 2024-11-22 16:27 | disposition home or self-care (01) ==
PROVIDERS: Emergency Provider Emergency Medicine
DX: R19.7 Diarrhea, unspecified (principal); R11.2 Nausea with vomiting, unspecified; M25.511 Pain in right shoulder; R10.2 Pelvic and perineal pain; I49.8 Other specified cardiac arrhythmias; Z03.818 Encounter for observation for suspected exposure to other biological agents ruled out; Z79.899 Other long term (current) drug therapy
CPT/HCPCS: 74177; 80048; 80076; 81001; 81025; 83690; 83735; 85025; 87637; 93005; 96361; 96372; 96374; 96375; 96376; 99285; 99291; J0737; J1200; J1308; J1790; J1885; J2270; J2405; J3360; J7120; Q9967

== ENCOUNTER → 2024-11-22 10:46 | Outpatient (BNV) | payer BC, SELFPAY | PROVIDERS: Emergency Provider Emergency Medicine; Visit Provider Internal Medicine | DX: R94.31 Abnormal electrocardiogram [ECG] [EKG] (principal); R53.1 Weakness | CPT/HCPCS: 93010 ==

== ENCOUNTER → 2024-11-22 12:52 | Outpatient (BNV) | payer BC, SELFPAY | PROVIDERS: Emergency Provider Emergency Medicine; Visit Provider Radiology Diagnostic Radiology | DX: N83.201 Unspecified ovarian cyst, right side (principal) | CPT/HCPCS: 74177 ==

== ENCOUNTER 2025-01-19 12:19 | Outpatient (AMB) | payer BC, SELFPAY ==
--- OUTSIDE RECORDS SUMMARY | 2024-12-08 09:00 | XMS_ITS ---
Author Organization [email or web address] Address [address] [place] [address] Care Team Providers Care Autoglazier Name Role Phone RACHAEL OROZCO Primary Care Provider Unavailabl BREE Lamas Unavailable [phone] REASON FOR VISIT ULTRA - RT OV CYST ON CT SCAN Encounters Encounter Location Date Provider Diagnosis [email or web address] [address] [facility] [address] [place] [address] 12/08/2024 BREE WELLINGTON Plan Of Treatment Next Appt Details Provider Name:Saira samuel, 01/21/2025 03:00:00 PM, [address] [facility], [address], [place], [address], Provider Name:BREE Ch, 07/08/2025 08:00:00 AM[facility] [address], [place], [address], Progress Notes * KATY COLEOB: 2 (44 yo F)Acc No.[id number]:12/08/2024 PROGRESS NOTES Patient: LISSET PEREZ Provider: Brody WELLINGTON MD :1980 A ge:44 Y S ex:Female Date:12/08/2024 Address:[address] [place], [place] [id number] Pcp:RACHAEL OROZCO Subjective: * Chief Complaints: * 1 . ULTRA - RT OV CYST ON CT SCAN. * Medical History: Objective: * Vitals: Assessment: Plan: * Treatment: * Images: Billing Information: * Visit Code: * Procedure Codes: * Electronic signature of BREE WELLINGTON MD on 01/19/2025 at 02:46 PM EDT Sign off status: Pending * Provider: Brody WELLINGTON MD Date: 0 12/08/2024 Generated for Oliva frazier/Jorge/Natalie on: 0 01/19/2025 02:46 PM EDT
[2025-01-19 12:23] VITALS: BP 138/86; PULSE 74; O2SAT 100; BMI 35.5
--- NOTE | 2025-01-19 12:23 | A.OFFPC_ITS ---
Vital Signs 01/19/25 12:23 Height 5 ft 4 in Weight 207 lb BMI 35.5 BP 138/86 Blood Pressure Location Lt brachial Position Sitting Pulse 74 Pulse Source Pulse Oximeter Pulse Oximetry (%) 100 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: annual visit Allergies Penicillins Adverse Reaction (Verified 01/19/25 12:23) Stomach Upset Medication List - Last Reconciled 01/19/25 by Taylor Rey MD lisinopril 5 mg PO DAILY Tobacco use date assessed: 06/09/24 Dental Screening Dental Screen Date: 06/09/24 HPI annual visit HPI Details History of Present Illness The patient is a 44-year-old female presenting for physical exam Ovarian Cyst: - The patient has an identified cyst on the right ovary. - Initially discovered during a CT scan performed during an emergency room visit. - The visit was prompted by gastrointest inal symptoms which were initially thought to be food poisoning. - The cyst measures approximately 7 cm. - Associated with mild discomfort when p ressure is applied, though currently the cyst is not severely painful. - Patient is scheduled for a follow-up a ssessment to evaluate changes in cyst size. Essential Hypertension: - The patient has a history of elevated blood pressure readings. - Has been prescribed Lisinopril 5 mg bu t reports challenges with consistent medication adherence. - Blood pressure reading at the visit wa s 138/86 mmHg, improved from prior readings. - Previous home monitoring indicated pot ential elevations above 140 mmHg. - Discussion about increasing Lisinopril to 10 mg due to inconsistent control. Family History of Colon Cancer: - Family history includes colon cancer o n the maternal side. - Several relatives on the maternal side have passed from the disease. Medical History: - Previously diagnosed with bronchitis ( resolved). Social History: - Exercises irregularly; attempting to w alk at least 10,000 steps daily. - Desires weight loss; struggles with se eing weight increase despite efforts. - Engages in calorie counting and is adv ised to consume around 2100 calories for weight loss. - Consumes coffee with creamers but has reduced sugar intake. 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 Family History: - Family history of colon cancer on the maternal side, involving great- grandparents and other relatives. Health Maintenance - Blood pressure monitored; advised to c onsistently take antihypertensive medication. - Engagement in physical activity and ca lisa counting for weight management. - Previously had a mammogram in May of last year, with regular annual scr eenings. 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 - Monitor blood pressure regularly with a home device. - Adhere to medication regimen . - Follow a 2100-calorie diet for weight loss and engage in regular physical activity. - Return for blood test fasting; conside r lab referral provided. - Consider gastroenterological evaluatio n due to family history of colon cancer. Follow-up six-month Review of Systems - General: No fever no chills - Neurological: No headaches no dizzin ess - Ear nose throat: No sore throat no hearing difficulty no ear pain - Cardiovascular: No syncope, no chest pain, no palpitations - Gastrointestinal: No nausea vomiting or diarrhea - Endocrine: No polyuria polydipsia no heat intolerance - Genitourinary: No dysuria - Skin: No new complaints Physical Exam General: Cooperative, healthy appearing, comfortable, no acute distress Orientation: Patient oriented x3 Limitations: None Head: Normal to inspection Ears: Within normal limit visually Nose: Normal external nose present Face and sinus: Normal facial exam Eyes: Appearance normal, extraocular movement intact pupils reactive Neck: Normal visual inspection and supple Respiratory: Normal respiratory effort and able to speak in complete sentences. Clear to auscultation, no stridor Cardiovascular: S1 and S2 RRR GI: Normal to inspection. Soft to palpation and nontender, except for some discomfort when the cyst is palpated Skin: Turgor normal, no acute findings, benign skin papule noted Neuro: Patient oriented x3, motor sensory intact, balance intact, tandem pass Extremities: Normal to inspection, range of motion intact PFSH Medical History Plantar fasciitis Surgical History No pertinent past surgical history Family History Sister Substance use disorder Mental health disorder Skin cancer Maternal Grandfather Substance use disorder Maternal Grandmother Substance use disorder Mother Mental health disorder Pancreatic cancer Coronary arteriosclerosis Social History Housing: House Alcohol intake: current Alcohol intake frequency: 3 or more drinks per day Patient Tobacco Use Status: Former Tobacco user e-Cigarette/Vaping Use: Currently Using Substance Use Type: Marijuana service: No Current occupational status: employed Cognitive needs: No Hearing needs: No Vision needs: Yes Questionnaire PHQ-9 Over the last 2 weeks, how often have you been bothered by any of the following problems? 1. Little interest or pleasure in doing things: several days 2. Feeling down, depressed, or hopeless: several days 3. Trouble falling or staying asleep, or sleeping too much: several days 4. Feeling tired or having little energy: several days 5. Poor appetite or overeating: not at all 6. Feeling bad about yourself - or that you are a failure or have let yourself or your family down: several days 7. Trouble concentrating on things, such as reading the newspaper or watching television: not at all 8. Moving or speaking so slowly that other people could have noticed. Or the opposite - being so fidgety or restless that you have been moving around a lot more than usual: not at all 9. Thoughts that you would be better off or of hurting yourself in some way: not at all Total score: 4 Depression Screening Interpretation: Negative Depression Screening Done: Yes 26649 - PHQ-9 Billing: Yes Source: Developed by Drs. Buddy Moore, Lacey Chu, Aman Vang and colleagues, with an educational angeli from [employer]. Thrive Questionnaire Date Thrive assessed: 06/09/24 I am a: Patient What is your living situation today?: I have a steady place to live Within the past 12 months, did the food you bought not last and you didn't have the money to get more?: Never true Within the past 12 months, did you worry whether your food would run out before you got money to buy more?: Never true Do you have trouble paying for medicines?: No Do you have trouble getting transportation to medical appointments?: No Do you have trouble paying your heating and electricity bill?: I choose not to answer this question Do you have trouble taking care of your child, family member or friend?: No Do you have trouble with day-to-day activities such as bathing, preparing meals, shopping, managing finances, etc.?: No Are you currently unemployed and looking for a job?: No Are you interested in more education?: No Please select the resources that you would like help with: None Currently or been in a relationship where the following occur: No concerns reported THRIVE Score: 0 ALICIA-7 AMB Questionnaire ALICIA-7 Date ALICIA - 7 assessed: 06/09/24 Source: Developed by Drs. Buddy Moore, Lacey Chu, Aman Vang and colleagues, with an educational angeli from [employer]. Physical exam (Primary Care) Vital Signs: Last Vital Signs Pulse 74 01/19/25 12:23 BP 138/86 01/19/25 12:23 Pulse Ox 100 01/19/25 12:23 BMI result Body Mass Index 35.5 Tobacco/Smoking Status: Tobacco use Status Tobacco use date assessed 06/09/24 01/19/25 12:24 Patient Tobacco Use Status Former Tobacco user 01/19/25 12:24 e-Cigarette/Vaping Use Currently Using 01/19/25 12:24 Depression Screening Interpretation: Negative Thrive Assessment: Date of Thrive Assessment Date Thrive assessed 06/09/24 01/19/25 12:24 Currently or been in a relationship where the following occur: No concerns r eported Coding Level of Care Code Est Pt Level 3 (06880) Est Pt Prev Care 40-64y(63601) Diagnoses Encounter for general adult medical examination with abnormal findings Z00.01 Class 1 obesity due to excess calories with serious comorbidity and body mass index (BMI) of 34.0 to 34.9 in adult E66.09; Z68.34 Body mass index: BMI 34.0-34.9 Obesity classification: adult class 1 (BMI 30 - 34.9) Serious obesity comorbidity presence: with serious comorbidity Primary hypertension I10 Hypertension type: primary hypertension Serum calcium elevated E83.52 Family history of colon cancer Z80.0 Additional Codes PHQ-9 - 65530 - PHQ-9 Billing: Yes ([id number]) Assessment & Plan Assessment & Plan (1) Encounter for general adult medical examination with abnormal findings: Code(s): Z00.01 - Encounter for general adult medical examination with abnormal findings Category: Medical (2) Obesity due to excess calories: Code(s): E66.09 - Other obesity due to excess calories Category: Medical Qualifiers: Body mass index: BMI 34.0-34.9 Obesity classification: adult class 1 (BMI 30 - 34.9) Serious obesity comorbidity presence: with serious comorbidity Qualified Code(s): E66.09 - Other obesity due to excess calories; Z68.34 - Body mass index [BMI] 34.0-34.9, adult (3) Hypertension: Comment: Started on 5 mg Lisinopril. Patient will continue to take blood pressure measure ments at home. Patient has been educated to limit salt intake. Code(s): I10 - Essential (primary) hypertension Category: Medical Qualifiers: Hypertension type: primary hypertension Qualified Code(s): I10 - Essential (primary) hypertension (4) Serum calcium elevated: Code(s): E83.52 - Hypercalcemia Category: Medical (5) Family history of colon cancer: Code(s): Z80.0 - Family history of malignant neoplasm of digestive organs Category: Medical Plan History of Present Illness The patient is a 44-year-old female presenting for physical exam Ovarian Cyst: - The patient has an identified cyst on the right ovary. - Initially discovered during a CT scan performed during an emergency room visit. - The visit was prompted by gastrointestinal symptoms which were initially thought to be food poisoning. - The cyst measures approximately 7 cm. - Associated with mild discomfort when pressure is applied, though currently the cyst is not severely painful. - Patient is scheduled for a follow-up assessment to evaluate changes in cyst size. Essential Hypertension: - The patient has a history of elevated blood pressure readings. - Has been prescribed Lisinopril 5 mg but reports challenges with consistent medication adherence. - Blood pressure reading at the visit was 138/86 mmHg, improved from prior readings. - Previous home monitoring indicated potential elevations above 140 mmHg. - Discussion about increasing Lisinopril to 10 mg due to inconsistent control. Family History of Colon Cancer: - Family history includes colon cancer on the maternal side. - Several relatives on the maternal side have passed from the disease. Medical History: - Previously diagnosed with bronchitis (resolved). Social History: - Exercises irregularly; attempting to walk at least 10,000 steps daily. - Desires weight loss; struggles with seeing weight increase despite efforts. - Engages in calorie counting and is advised to consume around 2100 calories for weight loss. - Consumes coffee with creamers but has reduced sugar intake. 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 Family History: - Family history of colon cancer on the maternal side, involving great- grandparents and other relatives. Health Maintenance - Blood pressure monitored; advised to consistently take antihypertensive medication. - Engagement in physical activity and calorie counting for weight management. - Previously had a mammogram in May of last year, with regular annual screenings. 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 - Monitor blood pressure regularly with a home device. - Adhere to medication regimen . - Follow a 2100-calorie diet for weight loss and engage in regular physical activity. - Return for blood test fasting; consider lab referral provided. - Consider gastroenterological evaluation due to family history of colon cancer. Follow-up six-month Orders: Orders Hemoglobin A1c Today E66.09 - Other obesity due to excess calories, E83.52 - Hypercalcemia, I10 - Essential (primary) hypertension, Z68.34 - Body mass index [BMI] 34.0-34.9, adult, Z76.89 - Persons encountering health services in other specified circumstances Complete Blood Count Auto Diff Today E66.09 - Other obesity due to excess calories, E83.52 - Hypercalcemia, I10 - Essential (primary) hypertension, Z68.34 - Body mass index [BMI] 34.0-34.9, adult, Z76.89 - Persons encountering health services in other specified circumstances Comprehensive [place]. Panel Fast Today E66.09 - Other obesity due to excess calories, E83.52 - Hypercalcemia, I10 - Essential (primary) hypertension, Z68.34 - Body mass index [BMI] 34.0-34.9, adult, Z76.89 - Persons encountering health services in other specified circumstances Lipid Panel Today E66.09 - Other obesity due to excess calories, E83.52 - Hypercalcemia, I10 - Essential (primary) hypertension, Z68.34 - Body mass index [BMI] 34.0-34.9, adult, Z76.89 - Persons encountering health services in other specified circumstances Vitamin D 25-OH (D2 and D3) Today E66.09 - Other obesity due to excess calories, E83.52 - Hypercalcemia, I10 - Essential (primary) hypertension, Z68.34 - Body mass index [BMI] 34.0-34.9, adult, Z76.89 - Persons encountering health services in other specified circumstances Vitamin B12 Today E66.09 - Other obesity due to excess calories, E83.52 - Hypercalcemia, I10 - Essential (primary) hypertension, Z68.34 - Body mass index [BMI] 34.0-34.9, adult, Z76.89 - Persons encountering health services in other specified circumstances TSH reflex Free T4 Today E66.09 - Other obesity due to excess calories, E83.52 - Hypercalcemia, I10 - Essential (primary) hypertension, Z68.34 - Body mass index [BMI] 34.0-34.9, adult, Z76.89 - Persons encountering health services in other specified circumstances Referrals Gastroenterology Referral Z80.0 - Family history of malignant neoplasm of digestive organs Medications: Changed From lisinopril 5 mg PO DAILY 90 tabs 0RF To lisinopril 10 mg PO DAILY 90 tabs 0RF
--- OUTSIDE RECORDS SUMMARY | 2025-01-19 14:47 | XMS_ITS | Patient Health Record ---
Author Organization [facility] Address [address] [place] [address] Care Team Providers Care Mark Up Designer Name Role Phone RACHAEL OROZCO Primary Care Provider BREE Kenny Unavailable [phone] Allergies Allergen (clinical drug ingredient) Drug/Non Drug Allergy documented on EMR Reaction Allergy Type Onset Date Status PENICILLIN Nausea/Vomiting/ Diarrhea Drug Allergy Active Results Component Value Reference Range Notes Test, Urine Reviewed date:12/03/2024 03:35:09 PM Interpretation: Performing Lab: Notes/Report: Test, Urine neg Ovarian Malignancy Risk-PEREZ -[id number] Reviewed date:12/08/2024 08:43:59 AM Interpretation: Performing Lab:[facility], [address] [place] [address], [place], Phone - [phone], Director - Robert Notes/Report: Cancer Antigen (CA) 125 11.0 0.0-38.1 U/mL [employer] Electrochemiluminescence Immunoassay (ECLIA) . Values obtained with different assay methods or kits cannot be used interchangeably. Results cannot be interpreted as absolute evidence of the presence or absence of malignant disease. HE4 37.7 0.0-63.6 pmol/L [employer] Electrochemiluminescence Immunoassay (ECLIA) . Values obtained with different assay methods or kits cannot be used interchangeably. Results cannot be interpreted as absolute evidence of the presence or absence of malignant disease. Premenopausal PEREZ 0.39 See below Postmenopausal PEREZ 0.72 See below Comment: The Risk for Ovarian Malignancy Algorithm (PEREZ) test is intended to aid in assessing whether a premenopausal or postmenopausal woman who presents with an ovarian adnexal mass is at high or low likelihood of finding malignancy on surgery. PEREZ is indicated for women who meet the following criteria: over age 18; ovarian adnexal mass present for which surgery is planned, and not yet referred to an oncologist. PEREZ must be interpreted in conjunction with an independent clinical and radiological assessment. The test is not intended as a screening or stand-alone diagnostic assay. . HE4 and CA125 values obtained with different assay methods or kits cannot be used interchangeably. Premenopausal Interp: LOW If the patient is premenopausal, then the premenopausal PEREZ score of less than 1.14 is consistent with a low likelihood of finding a malignancy on surgery. Postmenopausal Interp: LOW If the patient is postmenopausal, then the postmenopausal PEREZ score of less than 2.99 is consistent with a low likelihood of finding a malignancy on surgery. PDF Report Reviewed date:12/08/2024 08:44:17 AM Interpretation: Performing Lab:[facility], [address] [place] [address], [place], Phone - [phone], Director - Robert Notes/Report: Reason For Referral No Information Medications Medication SIG (Take, Route, Fr equency, Duration) Notes Start Date End Date Status Lisinopril 5 MG 1 tablet Orally Once a day Active Social History Tobacco Use: Social History Observation Description Date Details (start date - stop date) Former Smoker NA - NA AUDIT-C (Standard) Question Answer Notes Did you have a drink contain ing alcohol in the past year? Yes How often did you have a dri nk containing alcohol in the past year? 2 to 3 times a week (3 points) How many drinks did you have on a typical day when you were drinking in the past year? 5 or 6 drinks (2 points) How often did you have six o r more drinks on one occasion in the past year? 2 to 4 times a month (2 points) Points 7 Interpretation Positive Tobacco Control (Standard) Question Answer Notes Tobacco use: Former smoker How long has it been since you last smoked? 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 Heterosexual .CE: Smoking Amount: 1/2 PPD as of august 2011 Alcohol: rare alcohol Seatbelt: no Marital [...] W/U Status Risk Notes Problem Depressive disorder (92069003) Depressive disorder, not elsewhere classified (311) Active confirmed Problem History of dysplasia of cervix (972567937) Personal history of cervical dysplasia (V13.22) Active confirmed Problem Secondary amenorrhea (985185395) Secondary amenorrhea (N91.1) Active confirmed Problem Amenorrhea (36785980) Amenorrhea, unspecified (N91.2) Active confirmed Problem Abnormal uterine bleeding (61886048310173) Abnormal uterine and vaginal bleeding, unspecified (N93.9) Active confirmed Problem Dysmenorrhea (873764580) Dysmenorrhea, unspecified (N94.6) Active confirmed Problem Obese class II (067077512129220 ) Body mass index [BMI] 35.0-35.9, adult (Z68.35) Active confirmed Problem Irritable bowel syndrome (83186723) Irritable bowel syndrome (564.1) Active confirmed Major Vital Signs Temperature 97.7 degrees Fahrenheit 12/03/2024 Blood pressure diastolic 82 mm Hg 12/03/2024 Height 63 in 12/03/2024 Blood pressure systolic 146 mm Hg 12/03/2024 Weight 198 lbs 12/03/2024 BMI 35.07 kg/m2 12/03/2024 Encounters Encounter Location Date [address] [address] 12/08/2024 BREE WELLINGTON [address] [address] 06/30/2024 BREE WELLINGTON Encounter for gynecological examination (general) (routine) without abnormal findings Z01.419 and Encounter for screening mammogram for malignant neoplasm of breast Z12.[address] [address] 12/03/2024 BREE WELLINGTON Unspecified ovarian cyst, right side N83.201 and Amenorrhea, unspecified N91.[address] [address] 11/25/2024 BREE WELLINGTON [address] [address] 12/11/2024 BREE WELLINGTON Assessments Encounter Date Diagnosis (ICD Code) Assessment Notes Treatment Notes Treatment Clinical Notes Section Notes 06/30/2024 Encounter for gynecological examination (general) (routine) without abnormal findings (ICD-10 - Z01.419) Discussed cervical cancer screening with either cytology alone every 3 years or high risk HPV co-testing every 5 years as per ASCCP guidelines. Advised continued annual pelvic exams. Patient encouraged to increase her level of exercise. SBE technique encouraged/tau ght. Patient reminded when annual mammogram is due. 06/30/2024 Encounter for screening mammogram for malignant neoplasm of breast (ICD-10 - Z12.31) 12/03/2024 Unspecified ovarian cyst, right side (ICD-10 - N83.201) 7cm ovarian cyst seen on CT scan - will evaluate with ultrasound and PEREZ test and then make a plan depending on results. Will call patient with results. 12/03/2024 Amenorrhea, unspecified (ICD-10 - N91.2) Plan Of Treatment Pending Test Test Name Order Date Test, Urine 07/16/2023 PAP SMEAR 09/09/2014 FSH 07/16/2023 LH 07/16/2023 THIN PREP,HPV,OK IF HPV+ (>29YR)(DIAG) 03/29/2022 THIN PREP,HPV,OK IF HPV+ (>29YR)(SCRN) 01/22/2017 TSH WITH REFLEX TO FT4 07/16/2023 PROLACTIN WITH REFLEX TO MONOMERIC 07/15 ULTRASOUND: PELVIC W/TRANSVAGINAL 2024 MM Digital Screening Mammogram 3D 2021 MM Digital Screening Mammogram 3D 2023 MM Digital Screening Mammogram 3D 2024 Next Appt Details Provider Name:Saira samuel, 01/21/2025 03:00:00 PM, [address], [address], [place], [address], Provider Name:BREE Ch, 07/08/2025 08:00:00 AM, [employer], [address], [place], [address], Insurance Providers Payer Name Payer Address Payer Phone Subscriber Number Group Number Insured Name Patient Relationship to Insured Coverage Start Date Coverage End Date [employer] [place] [address] [place] [address] [phone] [id number] LISSET COLE Self - patient is the insured Medical (General) History Medical History History ICD Code Irritable bowel syndrome Dysmenorrhea Depressive disorder, not elsewhere class ified Personal history of cervical dysplasia COVID-19 U07.1 Body mass index [BMI] 35.0-35.9, adult Z 68.35 Abnormal uterine and vaginal bleeding, u nspecified N93.9 Amenorrhea, unspecified N91.2 Elevated blood-pressure reading, without diagnosis of hypertension R03.0 Dense breasts, unspecified R92.30 Mammographic heterogeneous density, bila teral breasts R92.333 Surgical History Surgery Date(Month/Year) cervical cone biopsy 2007 Hospitalization History Reason Date(Month/Year) 2 Vaginal Deliveries
== END 2025-01-19 14:34 | disposition home or self-care (01) ==
LOC: HO.HMCC 12:20
PROVIDERS: PCP Internal Medicine; Visit Provider Internal Medicine
DX: Z00.01 Encounter for general adult medical examination with abnormal findings (principal); E66.09 Other obesity due to excess calories; Z68.34 Body mass index [BMI] 34.0-34.9, adult; I10 Essential (primary) hypertension; E83.52 Hypercalcemia; Z80.0 Family history of malignant neoplasm of digestive organs

== ENCOUNTER → 2025-01-19 12:19 | Outpatient (BNVA) | payer BC, SELFPAY | PROVIDERS: PCP Internal Medicine; Visit Provider Internal Medicine | DX: Z00.01 Encounter for general adult medical examination with abnormal findings (principal); I10 Essential (primary) hypertension; E66.09 Other obesity due to excess calories; E83.52 Hypercalcemia; Z80.0 Family history of malignant neoplasm of digestive organs; Z68.34 Body mass index [BMI] 34.0-34.9, adult | CPT/HCPCS: 96127 ==

== ENCOUNTER 2025-04-07 12:58 | Outpatient (AMB) | payer BC, SELFPAY ==
[2025-04-07 13:03] VITALS: BP 130/80; PULSE 86; O2SAT 97; BMI 32.5
--- NOTE | 2025-04-07 13:03 | A.OFFPC_ITS ---
Vital Signs 04/07/25 13:03 Height 5 ft 4 in Weight 189 lb 4 oz BMI 32.5 BP 130/80 Blood Pressure Location Rt brachial Position Sitting Pulse 86 Pulse Source Pulse Oximeter Pulse Oximetry (%) 97 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: ED f/up Allergies Penicillins Adverse Reaction (Verified 04/07/25 13:03) Stomach Upset Medication List - Last Reconciled 04/07/25 by Taylor Rey MD lisinopril 10 mg PO DAILY Tobacco use date assessed: 06/09/24 Dental Screening Dental Screen Date: 06/09/24 HPI HPI Comments History of Present Illness Details History The patient is a 44 year old individual presenting for follow-up for an episode of hematemesis, hypertension management, and FMLA paperwork for foot pain. Hematemesis: - The patient experienced an episode of vomiting blood on March 24 while on a cruise. - The patient initially vomited a couple of times in the morning, felt better and had a couple of alcoholic drinks, then developed stomach pain. - The patient later woke up with a heada patrick and began vomiting again, at which point the emesis appeared brown, like coffee grounds, and tasted like blood. - Due to this, the patient sought care a t the [facility], where blood pressure was noted to be elevated, with one reading at 165 systolic. - Treatment included intravenous lorazep am 1 mg, normal saline, lactated ringers, and metoclopramide. - The patient continued to feel unwell t he following day and abstained from alcohol. - The patient was discharged from the [facility] with lorazepam for a nxiety, ondansetron for nausea, and 10 capsules of omeprazole, which the patient has since completed. - The patient denies abdominal pain. Hypertension: - The patient is currently taking lisino pril 10 mg for hypertension. - The blood pressure today was 130/80 mm Hg, and in January it was 138/86 mmHg. - During the recent illness on the cruis e, the blood pressure was elevated into the 150s systolic. - Post-cruise home BPs were 132/90 and 1 21/90 mmHg. - The patient has not yet completed the fasting bloodwork that was ordered in January. Plantar Fasciitis of Right Foot: - The patient has an ongoing issue with a heel spur in the right foot causing pain. - The patient's job at the [employer] requires being on the patient's feet. - The condition, which started around [facility] 2023, requires [place] paperwork. - The patient has not yet followed up wi th a powerhouse mechanic apprentice. Medical History: - Hypertension - Anxiety - Right heel spur and plantar fasciitis - Hospitalization: Emergency care visit on a cruise ship on March 24 for hematemesis. Medications: - Lisinopril 10 mg for hypertension Social History: - Alcohol use: Reports consuming alcohol prior to the recent episode of hematemesis; denies any alcohol use since that day. - Employment: Works at the [employer], which involves being on the patient's feet. [place] of Care The patient has a scheduled gastroenterology appointment for a colonoscopy consultation on June 01 at 10:15 AM at [facility]. A referral for a new podiatry appointment will be placed. [facility] Medical History Plantar fasciitis Surgical History No pertinent past surgical history Family History Sister Substance use disorder Mental health disorder Skin cancer Maternal Grandfather Substance use disorder Maternal Grandmother Substance use disorder Mother Mental health disorder Pancreatic cancer Coronary arteriosclerosis Social History Housing: House Alcohol intake: current Alcohol intake frequency: 3 or more drinks per day Patient Tobacco Use Status: Former Tobacco user e-Cigarette/Vaping Use: Currently Using Substance Use Type: Marijuana service: No Current occupational status: employed Cognitive needs: No Hearing needs: No Vision needs: Yes Questionnaire Thrive Questionnaire Date Thrive assessed: 06/09/24 I am a: Patient What is your living situation today?: I have a steady place to live Within the past 12 months, did the food you bought not last and you didn't have the money to get more?: Never true Within the past 12 months, did you worry whether your food would run out before you got money to buy more?: Never true Do you have trouble paying for medicines?: No Do you have trouble getting transportation to medical appointments?: No Do you have trouble paying your heating and electricity bill?: I choose not to answer this question Do you have trouble taking care of your child, family member or friend?: No Do you have trouble with day-to-day activities such as bathing, preparing meals, shopping, managing finances, etc.?: No Are you currently unemployed and looking for a job?: No Are you interested in more education?: No Please select the resources that you would like help with: None Currently or been in a relationship where the following occur: No concerns reported THRIVE Score: 0 ALICIA-7 AMB Questionnaire ALICIA-7 Date ALICIA - 7 assessed: 06/09/24 Source: Developed by Drs. Buddy Moore, Lacey Chu, Aman Vang and colleagues, with an educational angeli from [employer]. Review of Systems Narrative Review of Systems - Gastrointestinal: Reports recent history of nausea and vomiting, with emesis described as brown, coffee grounds that tasted like blood. Reports stomach pain after consuming alcohol during the acute illness. Denies current abdominal pain. - Neurological: Reports an unusual headache that occurred during the recent vomiting episode. - Musculoskeletal: Reports chronic right foot pain due to a heel spur. ear nose throat: No sore throat no hearing difficulty no ear pain cardiovascular: No syncope, no chest pain, no palpitations endocrine: No polyuria polydipsia no heat intolerance genitourinary: No dysuria skin: No new complaints Physical exam (Primary Care) Vital Signs: Last Vital Signs Pulse 86 04/07/25 13:03 BP 130/80 04/07/25 13:03 Pulse Ox 97 04/07/25 13:03 BMI result Body Mass Index 32.5 Tobacco/Smoking Status: Tobacco use Status Tobacco use date assessed 06/09/24 04/07/25 13:08 Patient Tobacco Use Status Former Tobacco user 04/07/25 13:08 e-Cigarette/Vaping Use Currently Using 04/07/25 13:08 Thrive Assessment: Date of Thrive Assessment Date Thrive assessed 06/09/24 04/07/25 13:08 Currently or been in a relationship where the following occur: No concerns reported Narrative Diagnostic results - Vitals from [facility]: Blood pressure was elevated with readings in the 150s and one at 165 systolic. - Vitals from January visit: Blood pressure was 138/86 mmHg. - Home blood pressure monitoring: Readings were 132/90 mmHg and 121/90 mmHg. Physical Exam general: No acute distress HEENT: No acute findings neck: Supple respiratory system: Able to talk in full sentences, no audible wheeze no stridor cardiovascular: S1-S2 RRR, blood pressure 130/80 gastrointestinal: No pain, history of vomiting with coffee ground emesis extremities: No new findings SUPERVISOR TYPESETTING: Alert awake oriented x3 motor sensory intact skin: Normal turgor Coding Level of Care Code Est Pt Level 5 (11477) Diagnoses Coffee ground emesis K92.0 Primary hypertension I10 Hypertension type: primary hypertension Plantar fasciitis M72.2 Foot pain, right M79.671 Calcaneal spur of right foot M77.31 Laterality: right Restricted work performance Z56.89 Time Spent (min) 40 Comment note review from cruise/ face to face / paper work/coordination of care Assessment & Plan Assessment & Plan (1) Coffee ground emesis: Code(s): K92.0 - Hematemesis Category: Medical (2) Hypertension: Code(s): I10 - Essential (primary) hypertension Category: Medical Qualifiers: Hypertension type: primary hypertension Qualified Code(s): I10 - Essential (primary) hypertension (3) Plantar fasciitis: Comment: Patient utilizing supportive footwear good effect. Code(s): M72.2 - Plantar fascial fibromatosis Category: Medical (4) Foot pain, right: Code(s): M79.671 - Pain in right foot Category: Medical (5) Heel spur: Code(s): M77.30 - Calcaneal spur, unspecified foot Category: Medical Qualifiers: Laterality: right Qualified Code(s): M77.31 - Calcaneal spur, right foot (6) Restricted work performance: Code(s): Z56.89 - Other problems related to employment Category: Social Hx Plan Problem List - Hematemesis - Hypertension - Plantar fasciitis of right foot - Anxiety - Preventative care: Colonoscopy and esophagogastroduodenoscopy (EGD) Plan - Suspected Gastric Ulcer/Hematemesis: Start pantoprazole 40 mg daily, with a 3- month supply prescribed, to help heal a potential ulcer. - Advised to avoid NSAIDs (Advil, naproxen, ibuprofen) and alcohol; Tylenol is recommended for pain as needed. - The patient will follow up with a warp dresser for a scheduled appointment on June 01 to discuss having both an EGD and a colonoscopy. - Hypertension: Increase lisinopril dose from 10 mg to 20 mg daily. The patient was instructed to finish the current supply by taking two 10 mg tablets tomorrow and then start the new 20 mg prescription. - Diagnostics: The patient is to complete the fasting blood tests that were ordered in January. - Right Foot Pain: FMLA paperwork for the patient's chronic foot condition was completed. - A referral for a new appointment with podiatry will be entered. The patient was advised that the powerhouse mechanic apprentice should handle future FMLA documentation for this condition. Orders: Referrals Podiatry Referral M72.2 - Plantar fascial fibromatosis, M77.30 - Calcaneal spur, unspecified foot, M79.671 - Pain in right foot Medications: New pantoprazole 40 mg PO DAILY 90 tabs 0RF Changed From lisinopril 10 mg PO DAILY 90 tabs 0RF To lisinopril 20 mg PO DAILY 90 tabs 0RF
== END 2025-04-07 13:53 | disposition home or self-care (01) ==
LOC: HO.HMCC 12:59
PROVIDERS: PCP Internal Medicine; Visit Provider Internal Medicine
DX: K92.0 Hematemesis (principal); I10 Essential (primary) hypertension; M72.2 Plantar fascial fibromatosis; M79.671 Pain in right foot; M77.31 Calcaneal spur, right foot; Z56.89 Other problems related to employment